=== PATIENT | male | born 1965 | race African-American/Black ===

== ENCOUNTER 2016-06-14 14:14 | Observation (INO) | payer MEDICARE, MEDICAID ==
[~2016-06-14] VITALS: Ht 190.5 cm; Wt 126.2 kg
[~2016-06-14 14:14] MED LIST: ATOR80TA76 PO; DULO30CA52 PO; ENAL5TAB PO; HYDR-4078 PO; LITH150C PO; OXYC-541 PO; SITA100T12 PO; TIZA4TAB4 PO; TRAZ-173 PO
--- OUTSIDE RECORDS SUMMARY | 2016-06-14 14:26 | XMS REPORT | Referral Summary ---
Author Author [facility] Organization [facility], Family [facility] Address Unknown Phone Unavailable Care Team Providers Care Application Architect Manager Name Role Phone Gi Alamo Primary Care Physician [phone] Encounter VC Date(s): 12/15/15 - 12/15/15 [facility], Family [address] [place] [address]- Discharge Disposition: 01-Home or Self Care Attending Physician: Alejandro Menard APRN Admitting Physician: Alejandro Menard APRN Vital Signs Most recent to 1 oldest [Reference Range]: Temperature Tympanic 36.8 degC [36.6-38.1 degC] (12/15/15 8:13 AM) Peripheral Pulse 80 bpm Rate [60-100 bpm] (12/15/15 8:13 AM) Respiratory Rate 15 br/min [14-20 br/min] (12/15/15 8:13 AM) Blood Pressure 118/80 mmHg [90-140/60-90 mmHg] (12/15/15 8:13 AM) SpO2 98 % (12/15/15 8:13 AM) Problem List No data available for this section Allergies, Adverse Reactions, Alerts Substance Reaction Severity Status metFORMIN Active Medications atorvastatin 80 mg oral tablet 80 mg 1 tabs, Oral, Daily, # 30 tabs, 0 Refill(s) Start Date: 12/15/15 Status: Ordered cephalexin 250 mg oral tablet 250 mg 1 tabs, Oral, TID, X 10 days, # 30 tabs, 0 Refill(s), Pharmacy: [id number], 1 tabs Oral TID,x10 days Start Date: 12/15/15 Stop Date: 12/25/15 Status: Ordered DULoxetine 30 mg oral delayed release capsule 30 mg 1 caps, Oral, BID, do not crush or chew, # 60 caps, 0 Refill(s) Start Date: 12/15/15 Status: Ordered enalapril 5 mg oral tablet 5 mg 1 tabs, Oral, Daily, # 30 tabs, 0 Refill(s) Start Date: 12/15/15 Status: Ordered Januvia 100 mg oral tablet 100 mg 1 tabs, Oral, Daily, # 30 tabs, 0 Refill(s) Start Date: 12/15/15 Status: Ordered lithium 150 mg oral capsule 150 mg 1 caps, Oral, Bedtime (once a day), 0 Refill(s) Start Date: 12/15/15 Status: Ordered Hersey 10 mg-325 mg oral tablet 1 tabs, Oral, TID, 0 Refill(s) Start Date: 12/15/15 Status: Ordered Percocet 5/325 oral tablet 1 tabs, Oral, q6hr, as needed for pain, 0 Refill(s) Start Date: 12/15/15 Status: Ordered tiZANidine 4 mg oral tablet 4 mg 1 tabs, Oral, q8hr, # 90 tabs, 0 Refill(s) Start Date: 12/15/15 Status: Ordered traZODone 100 mg oral tablet 100 mg 1 tabs, Oral, Bedtime (once a day), # 180 tabs, 0 Refill(s) Start Date: 12/15/15 Status: Ordered Results Chemistry Most recent to 1 oldest [Reference Range]: Sodium Lvl [135-144 137 mEq/L mEq/L] (12/15/15 9:17 AM) Potassium Lvl 4.2 mEq/L [3.5-5.2 mEq/L] (12/15/15 9:17 AM) Chloride [99-111 103 mEq/L mEq/L] (12/15/15 9:17 AM) CO2 [23-31 mEq/L] 24 mEq/L (12/15/15 9:17 AM) AGAP [3-20] 10 (12/15/15 9:17 AM) BUN [8-26 mg/dL] 7 mg/dL *LOW* (12/15/15 9:17 AM) Glucose Lvl [70-99 268 mg/dL mg/dL] *HI* (12/15/15 9:17 AM) Creatinine Lvl 0.92 mg/dL [0.72-1.25 mg/dL] (12/15/15 9:17 AM) eGFR [>60 mL/min] >60 mL/min 1 (12/15/15 9:17 AM) Calcium Lvl 9.3 mg/dL [8.9-10.5 mg/dL] (12/15/15 9:17 AM) Hgb A1c [4.1-5.6 %] 8.5 % *HI* (12/15/15 9:17 AM) eAvg Glucose 197.3 mg/dL (12/15/15 9:17 AM) 1Result Comment: Multiply eGFR results by 1.21 for race. Immunizations Vaccine Date Refusal Reason tetanus/diphth/pertuss (Tdap) adult/adol 10/31/15 influenza virus vaccine, inactivated 10/31/15 Procedures Procedure Date Related Diagnosis Body Site Stroke Social History Social History Type Response Smoking Status Current some day smoker; Type: Cigarettes; Tobacco use per day: 1 Pack Assessment and Plan No data available for this section
--- OUTSIDE RECORDS SUMMARY | 2016-06-14 14:26 | XMS REPORT | Referral Summary ---
Author Author [facility], Family [facility] Organization [facility], [facility] Address Unknown Phone Unavailable Care Team Providers Care Engraver Rubber Name Role Phone Gi Alamo Primary Care Physician [phone] Encounter Date(s): 01/13/16 - 01/13/16 [facility], [address] [place] [address]- [place] Discharge Diagnosis: Erectile dysfunction associated with type 2 diabetes mellitus Discharge Diagnosis: Benign essential hypertension Discharge Diagnosis: Chronic pain syndrome Discharge Diagnosis: Hyperlipidemia associated with type 2 diabetes mellitus Discharge Diagnosis: Diabetes mellitus type 2, uncontrolled, without complications Discharge Diagnosis: Bipolar depression Discharge Diagnosis: Hyperlipidemia Discharge Disposition: 01-Home or Self Care Attending Physician: Chelsey Alamo DO Admitting Physician: Chelsey Alamo DO Vital Signs Most recent to 1 oldest [Reference Range]: Temperature Tympanic 36.1 degC [36.6-38.1 degC] *LOW* (01/13/16 8:20 AM) Peripheral Pulse 88 bpm Rate [60-100 bpm] (01/13/16 8:20 AM) Respiratory Rate 16 br/min [14-20 br/min] (01/13/16 8:20 AM) Blood Pressure 136/88 mmHg [90-140/60-90 mmHg] (01/13/16 8:20 AM) SpO2 98 % (01/13/16 8:20 AM) Problem List Condition Effective Dates Status Health Status Informant Benign essential Active hypertension(Confirm ed) Closed TBI Active (traumatic brain injury)(Confirmed) Chronic pain Active syndrome(Confirmed) Bipolar Active depression(Confirmed ) Erectile dysfunction Active associated with type 2 diabetes mellitus(Confirmed) History of Active stroke(Confirmed) History of CVA with Active residual deficit(Confirmed) Hyperlipidemia(Confi Active rmed) Obesity(Confirmed) Active patient Diabetes mellitus Active type 2, uncontrolled, without complications(Confir med) Allergies, Adverse Reactions, Alerts Substance Reaction Severity Status metFORMIN Active Medications atorvastatin 80 mg oral tablet 80 mg 1 tabs, Oral, Daily, # 30 tabs, 0 Refill(s) Start Date: 12/15/15 Status: Ordered Cialis 2.5 mg oral tablet 2.5 mg 1 tabs, Oral, Daily, at the same time every day, # 90 tabs, 0 Refill(s), Pharmacy: [facility], 1 tabs Oral Daily,Instr:at the same time every day Start Date: 01/13/16 Status: Ordered DULoxetine 30 mg oral delayed release capsule 30 mg 1 caps, Oral, BID, do not crush or chew, # 60 caps, 0 Refill(s) Start Date: 12/15/15 Status: Ordered enalapril 5 mg oral tablet 5 mg 1 tabs, Oral, Daily, # 30 tabs, 0 Refill(s) Start Date: 12/15/15 Status: Ordered glipiZIDE 10 mg oral tablet 10 mg 1 tabs, Oral, Daily, # 90 tabs, 0 Refill(s), Pharmacy: [facility], 1 tabs Oral Daily Start Date: 01/13/16 Status: Ordered lithium 150 mg oral capsule 150 mg 1 caps, Oral, Bedtime (once a day), 0 Refill(s) Start Date: 12/15/15 Status: Ordered Savage 10 mg-325 mg oral tablet 1 tabs, [...] Refill(s) Start Date: 12/15/15 Status: Ordered Results No data available for this section Immunizations Vaccine Date Refusal Reason tetanus/diphth/pertuss (Tdap) adult/adol 10/31/15 influenza virus vaccine, inactivated 10/31/15 Procedures Procedure Date Related Diagnosis Body Site Stroke Social History Social History Type Response Smoking Status Current some day smoker; Type: Cigarettes; Tobacco use per day: 1 Pack Assessment and Plan Extracted from: Title: Office Visit Note Author: Chelsey Alamo DO Date: 01/13/16 Assessment/Plan Benign essential hypertension Continue current regimen, labs are up-to-date , return to clinic in 3 months. Ordered: Office Visit Level 4 Est 72229 Bipolar depression Continue as per her Christine. Ordered: Office Visit Level 4 Est 94519 Chronic pain syndrome He has been referred to [facility], we are currently waiting hisprevious pain management physiciansrecords be transferred there for they will accept him. Diabetes mellitus type 2, uncontrolled, without complications We will discontinue the Januvia due to side effects and start the patient on glipizide due to cost. We will start him on 10 mg of glipizide and he will call with fasting blood sugars in about 3 weeks. We will adjustregimen from there based on sugars. He'll return to clinic in 3 months. Ordered: Office Visit Level 4 Est 78337 Erectile dysfunction associated with type 2 diabetes mellitus, Hyperlipidemia associated with type 2 diabetes mellitus We will start Cialis for daily use. Ordered: Office Visit Level 4 Est 44643 Hyperlipidemia Continue statin at this time, return to clinic in 3 months. Ordered: Office Visit Level 4 Est 35628
--- OUTSIDE RECORDS SUMMARY | 2016-06-14 14:26 | XMS REPORT | Referral Summary ---
Author Author [facility] Organization [facility] Address Unknown Phone Unavailable Care Team Providers Care Senior Estimator Name Role Phone Gi Alamo Primary Care Physician [phone] Encounter VC Date(s): 01/19/16 - 01/19/16 [facility] [address] [facility] [place] [address] Discharge Diagnosis: Pain of right great toe Discharge Diagnosis: Pain due to onychomycosis of toenail Discharge Diagnosis: Diabetes mellitus type 2, uncontrolled, without complications Discharge Disposition: 01-Home or Self Care Attending Physician: Niall Bradley DPM Admitting Physician: Niall Bradley DPM Vital Signs No data available for this section Problem List Condition Effective Dates Status Health Status Informant Benign essential Active hypertension(Confirm ed) Closed TBI Active (traumatic brain injury)(Confirmed) Chronic pain Active syndrome(Confirmed) Bipolar Active depression(Confirmed ) Erectile dysfunction Active associated with type 2 diabetes mellitus(Confirmed) History of Active stroke(Confirmed) History of CVA with Active residual deficit(Confirmed) Hyperlipidemia(Confi Active rmed) Obesity(Confirmed) Active patient Pain due to Active onychomycosis of toenail(Confirmed) Diabetes mellitus Active type 2, uncontrolled, without [...] day, # 90 tabs, 0 Refill(s), Pharmacy: [facility], 1 tabs Oral Daily,Instr:at [...] Daily, # 90 tabs, 0 Refill(s), Pharmacy: [facility], 1 tabs Oral Daily Start Date: 01/13/16 Status: Ordered lithium 150 mg oral capsule 150 mg 1 caps, Oral, Bedtime (once a day), 0 Refill(s) Start Date: 12/15/15 Status: Ordered Hagerman 10 mg-325 mg oral tablet 1 tabs, [...] Procedures Procedure Date Related Diagnosis Body Site Debridement of nail(s) by any method(s); or 01/19/16 more Stroke Social History Social History Type Response Smoking Status Current some day smoker; Type: Cigarettes; Tobacco use per day: 1 Pack Assessment and Plan Extracted from: Title: Ambulatory Patient Education Author: Niall Bradley DPM Date: Preventive Medicine Diabetes and Foot Care Diabetes may cause you to have problems because of poor blood supply ( circulation) to your feet and legs. This may cause the skin on your feet to become thinner, break easier, and heal more slowly. Your skin may become dry, and the skin may peel and crack. You may also have nerve damage in your legs and feet causing decreased feeling in them. You may not notice minor injuries to your feet that could lead to infections or more serious problems. Taking care of your feet is one of the most important things you can do for yourself. HOME CARE INSTRUCTIONS Wear shoes at all times, even in the house. Do not go barefoot. Bare feet are easily injured. Check your feet daily for blisters, cuts, and redness. If you cannot see the bottom of your feet, use a mirror or ask someone for help. Wash your feet with warm water (do not use hot water) and mild soap. Then pat your feet and the areas between your toes until they are completely dry. Do not soak your feet as this can dry your skin. Apply a moisturizing lotion or petroleum jelly (that does not contain alcohol and is unscented) to the skin on your feet and to dry, brittle toenails. Do not apply lotion between your toes. Trim your toenails straight across. Do not dig under them or around the cuticle. File the edges of your nails with an emery board or nail file. Do not cut corns or calluses or try to remove them with medicine. Wear clean socks or stockings every day. Make sure they are not too tight. Do not wear knee-high stockings since they may decrease blood flow to your legs. Wear shoes that fit properly and have enough cushioning. To break in new shoes, wear them for just a few hours a day. This prevents you from injuring your feet. Always look in your shoes before you put them on to be sure there are no objects inside. Do not cross your legs. This may decrease the blood flow to your feet. If you find a minor scrape, cut, or break in the skin on your feet, keep it and the skin around it clean and dry. These areas may be cleansed with mild soap and water. Do not cleanse the area with peroxide, alcohol, or iodine. When you remove an adhesive bandage, be sure not to damage the skin around it. If you have a wound, look at it several times a day to make sure it is healing. Do not use heating pads or hot water bottles. They may burn your skin. If you have lost feeling in your feet or legs, you may not know it is happening until it is too late. Make sure your health care provider performs a complete foot exam at least annually or more often if you have foot problems. Report any cuts, sores, or bruises to your health care provider immediately. SEEK MEDICAL CARE IF: You have an injury that is not healing. You have cuts or breaks in the skin. You have an ingrown nail. You notice redness on your legs or feet. You feel burning or tingling in your legs or feet. You have pain or cramps in your legs and feet. Your legs or feet are numb. Your feet always feel cold. SEEK IMMEDIATE MEDICAL CARE IF: There is increasing redness, swelling, or pain in or around a wound. There is a red line that goes up your leg. Pus is coming from a wound. You develop a fever or as directed by your health care provider. You notice a bad smell coming from an ulcer or wound. This information is not intended to replace advice given to you by your health care provider. Make sure you discuss any questions you have with your health care provider. Document Released: 01/28/2001 Document Revised: 10/03/2013 Document Reviewed: [employer] Interactive Patient Education 2016 [employer] No follow up information was provided. Extracted from: Title: Office Visit Note Author: Niall Bradley M Date: 01/19/16 Assessment/Plan 1.Pain due to onychomycosis of toenail 2.Pain of right great toe ABN and consent forms were signed by the patient. Debridement of toenails,total of 10 was performed viamanual and mechanical means without any incidence. Patient will be referred to Dr. Timfor routine toenail care. Follow up if condition worsens. 3.Diabetes mellitus type 2, uncontrolled, without complications Most recent A1c was 8.5.
--- OUTSIDE RECORDS SUMMARY | 2016-06-14 14:26 | XMS REPORT | Continuity of Care Document ---
Author Author [facility] Organization [facility] Address Unknown Phone Unavailable Care Team Providers Care Rn Security Name Role Phone OTHER Primary Care Physician [phone] Insurance Providers Guarantor Modesto Benavides Sr Address [address] [place] [address] Email DENIED/NO PORTAL Payer Medicaid Out Of State Policy Number [id number] Subscriber's Name Modesto Benavides Sr Relationship 18 Self Payer [employer] Policy Number [id number] Subscriber's Name Modesto Benavides Sr Relationship 18 Self Chief Complaint and Reason for Visit Chief Complaint Nausea,Vomiting,Diarrhea Reason for Visit [id number] Problems Past Problems Medical Problem Onset Date Abdominal pain, chronic, left lower quadrant Unknown Abdominal pain, chronic, left upper quadrant Unknown Medications Current Home Medications Medication Dose Units Route Directions Days Qty Instructions Start Date Atorvastatin Calcium 80 Mg Tablet 80 Mg Oral Bedtime 12/03/15 Duloxetine Hcl 30 Mg Capsule.dr 30 Mg Oral Twice A Day 12/03/15 Enalapril Maleate 5 Mg Tablet 5 Mg Oral Daily 12/03/15 Hydrocodone/Acetaminophen (Marian[place] 10-325 Tablet) 10-325 Tablet 1 Tab Oral Three Times A Day 12/03/15 Pinole Carbonate 150 Mg Capsule 150 Mg Oral Daily 12/03/15 Oxycodone Hcl/Acetaminophen (Oxycodone-Acetaminophen 5-325) 5-325 Tablet 1-2 Tab Oral Every 6 Hours as needed for Pain 15 Tablet 12/03/15 Sitagliptin Phosphate (Januvia) 100 Mg Tablet 100 Mg Oral Daily 12/03/15 Tizanidine Hcl 4 Mg Tablet 4 Mg Oral Q8h @ 0100/0900/1700 as needed for Prn Orders 12/03/15 Trazodone Hcl 100 Mg Tablet 100 Mg Oral Bedtime 12/03/15 Social History Social History Problem Response Recorded Date/Time Onset Date Status Chewing Tobacco Status No 12/03/2015 1:19pm Not Applicable Not Applicable Hx Substance Use No 12/03/2015 1:19pm Not Applicable Not Applicable Hx Alcohol Use No 12/03/2015 1:19pm Not Applicable Not Applicable Query Response Start Date Stop Date Smoking Status Current every day smoker Hospital Discharge Instructions No hospital discharge instructions. Plan of Care Discharge Date 12/03/15 5:06pm Disposition 01 DISCHARGED HOME, SELF-CARE Condition at Discharge Improved Instructions/Education Provided ED Abdominal Pain Prescriptions See Medication Section Referrals OTHER Additional Instructions/Education Establish yourself with a primary medical physician for further follow-up Recommend Imodium for diarrhea Care Plan and Goals Physician Care Plan Problem: Chronic abdominal pain, diarrhea Goal: Follow up with primary care provider Instructions: Take medications and follow care plan as discussed/written Functional Status No functional status results. Allergies, Adverse Reactions, Alerts Allergen Type Severity Reaction Status Last Updated Metformin Allergy Unknown LOOSE STOOLS Active 12/03/15 Immunizations Query Response on File Recorded Date/Time DTaP Vaccine History 201312/03/15 1:19pm Influenza Vaccine Hx 201412/03/15 1:19pm Vital Signs Acute Vital Signs Vital Response Date/Time Temperature (Fahrenheit) 98.5 deg F (96.8 - 99.1) 12/03/2015 5:06pm Temperature (Calculated Celsius) 36.51739 degrees C (36.0 - 37.3) 12/03/2015 5:06pm Pulse Rate (adult) 93 bpm (60 - 100) 12/03/2015 5:06pm Respiratory Rate 16 breaths/min (10 - 20) 12/03/2015 5:06pm O2 Sat by Pulse Oximetry 95 % (90 - 100) 12/03/2015 5:06pm Blood Pressure 130/82 mm Hg 12/03/2015 5:06pm Height (Feet) 6 feet 12/03/2015 12:58pm Height (Inches) 3.00 inches 12/03/2015 12:58pm Weight (Kilograms) 124.400 kg 12/03/2015 12:58pm Body Mass Index (BMI) 34.0 12/03/2015 12:58pm Results Laboratory Results Test Name Result Units Flags Reference Collection Date/Time Result Date/ Time Comments White Blood Count 7.9 T/MM3 4.5-11.0 12/03/2015 2:07pm 12/03/2015 2: 14pm Red Blood Count 5.32 M/MM3 4.50-5.90 12/03/2015 2:07pm 12/03/2015 2: 14pm Hemoglobin 16.9 GM/DL 13.5-17.5 12/03/2015 2:07pm 12/03/2015 2:14pm Hematocrit 51.3 % 41-53 12/03/2015 2:07pm 12/03/2015 2:14pm Mean Corpuscular Volume 96.4 UM3 80-100 12/03/2015 2:07pm 12/03/2015 2: 14pm Mean Corpuscular Hemoglobin 31.8 UUG 26-34 12/03/2015 2:07pm 2015 2:14pm Mean Corpuscular Hemoglobin Concent 32.9 GM/DL 31-37 12/03/2015 2:07pm 12/03/2015 2:14pm RDW Standard Deviation 41.7 FL 36.9-50.2 12/03/2015 2:07pm 12/03/2015 2 :14pm Platelet Count 172 T/MM3 130-400 12/03/2015 2:07pm 12/03/2015 2:14pm Mean Platelet Volume 11.4 UM3 9.4-12.4 12/03/2015 2:07pm 12/03/2015 2: 14pm Neutrophils (%) (Auto) 60.8 % 33-66 12/03/2015 2:07pm 12/03/2015 2: 14pm Lymphocytes (%) (Auto) 32.4 % 23-45 12/03/2015 2:07pm 12/03/2015 2: 14pm Monocytes (%) (Auto) 4.7 % 0-9.0 12/03/2015 2:07pm 12/03/2015 2:14pm Eosinophils (%) (Auto) 1.9 % 0-4 12/03/2015 2:07pm 12/03/2015 2:14pm Basophils (%) (Auto) 0.1 % 0-2 12/03/2015 2:07pm 12/03/2015 2:14pm Immature Granulocyte % (Auto) 0.1 % 0.0-0.5 12/03/2015 2:07pm 2015 2:14pm Absolute Neutrophils (auto) 4.8 T/MM3 1.8-7.7 12/03/2015 2:07pm 2015 2:14pm Absolute Lymphocytes (auto) 2.6 T/MM3 1-4.8 12/03/2015 2:07pm 2015 2:14pm Absolute Monocytes (auto) 0.4 T/MM3 0-0.8 12/03/2015 2:07pm 12/03/2015 2:14pm Absolute Eosinophils (auto) 0.2 T/MM3 0-0.5 12/03/2015 2:07pm 2015 2:14pm Absolute Basophils (auto) 0.0 T/MM3 0-0.2 12/03/2015 2:07pm 12/03/2015 2:14pm Absolute Immature Granulocyte (auto 0.01 T/MM3 0.00-0.03 12/03/2015 2: 07pm 12/03/2015 2:14pm Icterus Index < 2 0-7 12/03/2015 2:07pm 12/03/2015 2:25pm Chemistry Specimen Hemolysis < 15 0-25 12/03/2015 2:07pm 12/03/2015 2 :25pm 0-25: Specimen Exhibited No Hemolysis. Turbidity < 20 0-20 12/03/2015 2:07pm 12/03/2015 2:25pm Sodium Level 143 MEQ/L 134-144 12/03/2015 2:07pm 12/03/2015 2:25pm Potassium Level 4.2 MEQ/L 3.6-5 12/03/2015 2:07pm 12/03/2015 2:25pm Chloride Level 102 MEQ/L 98-107 12/03/2015 2:07pm 12/03/2015 2:25pm Carbon Dioxide Level 30 MEQ/L 22-30 12/03/2015 2:07pm 12/03/2015 2: 25pm Anion Gap 11 MEQ/L 5-15 12/03/2015 2:07pm 12/03/2015 2:25pm Blood Urea Nitrogen 12.0 MG/DL 9-12/03/2015 2:07pm 12/03/2015 2: 25pm Creatinine 0.9 MG/DL 0.8-1.5 12/03/2015 2:07pm 12/03/2015 2:25pm BUN/Creatinine Ratio 13 RATIO 6-26 12/03/2015 2:07pm 12/03/2015 2:25pm Glomerular Filtration Rate Calc 90 12/03/2015 2:07pm 12/03/2015 2: 25pm Glucose Level 213 MG/DL H 75-110 12/03/2015 2:07pm 12/03/2015 2:25pm Calculated Osmolality 281 MOSM/KG H 261-280 12/03/2015 2:07pm 2015 2:25pm Calcium Level 9.9 MG/DL 8.4-10.2 12/03/2015 2:07pm 12/03/2015 2:25pm Total Bilirubin 0.80 MG/DL 0.20-1.30 12/03/2015 2:07pm 12/03/2015 2: 25pm Alkaline Phosphatase 141 U/L H 38-126 12/03/2015 2:07pm 12/03/2015 2: 25pm Total Protein 7.9 G/DL 6.3-8.2 12/03/2015 2:07pm 12/03/2015 2:25pm Albumin 4.5 G/DL 3.5-5.0 12/03/2015 2:07pm 12/03/2015 2:25pm Globulin 3.4 G/DL 2.4-3.6 12/03/2015 2:07pm 12/03/2015 2:25pm Albumin/Globulin Ratio 1.3 RATIO 1.1-2.2 12/03/2015 2:07pm 12/03/2015 2 :25pm Aspartate Amino Transf (AST/SGOT) 34 U/L 17-59 12/03/2015 2:07pm 2015 2:25pm Alanine Aminotransferase (ALT/SGPT) 44 U/L 21-72 12/03/2015 2:07pm 2:25pm Lipase 193 U/L 23-300 12/03/2015 2:07pm 12/03/2015 2:25pm Pinole Level < 0.2 MMOL/L L 0.6-1.2 12/03/2015 2:07pm 12/03/2015 2: 36pm Urine Collection Type VOIDED-NOT CC-MIDSTR 12/03/2015 3:16pm 2015 3:20pm Urine Color YELLOW YELLOW 12/03/2015 3:16pm 12/03/2015 3:20pm Urine Turbidity CLEAR CLEAR 12/03/2015 3:16pm 12/03/2015 3:20pm Urine Specific [place] 1.025 1.015-1.025 12/03/2015 3:16pm 2015 3:20pm Urine pH 5.5 5.0-8.0 12/03/2015 3:16pm 12/03/2015 3:20pm Urine Leukocyte Esterase NEGATIVE NEGATIVE 12/03/2015 3:16pm 2015 3:20pm Urine Nitrite NEGATIVE NEGATIVE 12/03/2015 3:16pm 12/03/2015 3:20pm Urine Protein NEGATIVE NEGATIVE 12/03/2015 3:16pm 12/03/2015 3:20pm Urine Glucose (UA) 3+ A NEGATIVE 12/03/2015 3:16pm 12/03/2015 3:20pm Urine Ketones NEGATIVE NEGATIVE 12/03/2015 3:16pm 12/03/2015 3:20pm Urine Urobilinogen 1.0 EU/DL NORMAL 12/03/2015 3:16pm 12/03/2015 3: 20pm Urine Bilirubin NEGATIVE NEGATIVE 12/03/2015 3:16pm 12/03/2015 3: 20pm Urine Blood NEGATIVE NEGATIVE 12/03/2015 3:16pm 12/03/2015 3:20pm Urinalysis Comment MICROSCOPIC NOT IND. 12/03/2015 3:16pm 2015 3:20pm Name: MODESTO BENAVIDES SR Unit #: [id number] : 1965 Sex: M Admit Date: Loc / Svc: ED Discharge Date: DIAGNOSTIC IMAGING REPORT Report #: [id number] [facility] IVAN Enriquez Indication: ITS.REASON: severe left-sided abdominal pain PROCEDURE: KUB W/UPRIGHT: Encounter: Initial Comparison: None Findings: The visualized lung bases are clear. There is no free air on the upright view. The bowel gas pattern is nonobstructive and nonspecific. Gas is seen in nondilated small and large bowel to the level of the rectum. Moderate stool is seen throughout the colon. The bony structures are grossly unremarkable. Impression: Nonobstructive nonspecific bowel gas pattern. . Procedures No known history of procedures. Encounters Encounter Location Arrival/Admit Date Discharge/Depart Date Attending Provider Departed Emergency Room [facility] 12/03/15 12:53pm 12/03/15 5: 06pm JORGE PICKARD MD Recent Diagnosis
--- OUTSIDE RECORDS SUMMARY | 2016-06-14 14:26 | XMS REPORT | Continuity of Care Document ---
Author Author [facility] Organization [facility] Address Unknown Phone Unavailable Care Team Providers Care Dental Ceramist Name Role Phone Tamie Aguillon Primary Care Physician [phone] Source Comments Some departments are not documenting in the electronic medical record. If you do not see the information that you expected, contact Release of Information in the Health Information Management department at [phone] for further assistance in locating additional records.[facility] Active Allergies and Adverse Reactions No Known Allergies Current Medications Prescription Sig. Disp. Refills Start End Date Status Date blood sugar diagnostic 1 Each by Test route 3 box 3 06/14/19 Active (CONTOUR NEXT STRIPS) twice daily before meals. 13 test strip Needs contour strips. Tests blood sugars BID. zonisamide (ZONEGRAN) 100 Take 100 mg by mouth Active mg capsule daily. At HS, Per neurologist other medication Pt needs home BP cuff to 1 Each 0 02/21/19 Active monitor pressures. Dx : 14 HTN and CVA 401.9 and 434.91 atorvastatin (LIPITOR) 10 Take 1 Tab by mouth 90 Tab 3 03/19/19 Active mg tablet daily. 14 lisinopril-hydrochlorothi Take 1 Tab by mouth 90 Tab 3 04/11/19 Active azide (PRINZIDE, daily. 14 ZESTORETIC) 10-12.5 mg tablet glimepiride (AMARYL) 4 mg Take 1 Tab by mouth daily 90 Tab 3 05/17/19 Active tablet with breakfast. For 14 diabetes other medication NATALY Jasso, one pair 1 Dose 0 11/08/19 Active 14 pregabalin (LYRICA) 75 mg Take 1 Cap by mouth twice 180 Cap 3 Active capsule daily. 14 baclofen (LIORESAL) 20 mg Take 1 Tab by mouth three 270 Tab 3 Active tablet times daily. 14 HYDROcodone-acetaminophen Take 1 Tab by mouth every 60 Tab 0 11/16/19 Active (+) (NORCO) 7.5-325 mg 8 hours as needed for 14 tablet Pain. phenytoin SR (DILANTIN) Take 1 Cap by mouth three 270 Cap 3 11/16/19 Active 100 mg capsule times daily. 14 sertraline (ZOLOFT) 100 Take 1 Tab by mouth 135 Tab 3 11/16/19 Active mg tablet daily. Take 1 and 1/2 14 pills daily. Active Problems Problem Noted Date Diabetic peripheral neuropathy ([facility]) 07/11/2013 Glaucoma suspect of both eyes 04/23/2013 Overview: D/t large C/Ds OU and C/D asymmetry (OS>OD) Patient states he's been followed for glaucoma before, but never started on eye drops L ast Assessment & Plan: Educated patient on condition. RTC 1 month for glaucoma testing at [place] location (VF 24-2 LUANNE FAST, RNFL OCT, gonio, pachymetry, IOP) Astigmatism with presbyopia 04/23/2013 Last Assessment & Plan: Prescription for glasses provided to patient. Monitor yearly. Hyperlipidemia 03/19/2013 Depression 08/04/2012 Hypertension 07/06/2012 Last Assessment & Plan: Without retinopathy OU. Reviewed with patient need for good blood pressure control to maintain ocular health. Monitor yearly. CVA (cerebral infarction) 04/25/2012 Overview: Hemorrhagic in '09 or'10 ([place]). Deficits include R arm paralysis, L leg weakness, spasticity, gait abnormality. Will refer to PT/OT for evaluation and to see what items might be needed for home safety. Also he needs a gait evaluation for possible walker or scooter. I have requested old records. Any Neuro input would be appreciated. Diabetes mellitus ([facility]) 04/25/2012 Overview: Last A1c normal. A1c pending. Will follow and restart Metformin if needed. L ast Assessment & Plan: Without retinopathy OU. Reviewed with patient need for tight control of diabetes to help maintain ocular health. Monitor yearly. History of hypertension 04/25/2012 Overview: Continue to follow. Seizure disorder ([facility]) 04/25/2012 Overview: Refer to Neurology for management. Abnormality of gait following cerebrovascular accident 04/25/2012 Overview: Gait eval. Social History Tobacco Use Types Packs/Day Years Used Date Current Every Day Smoker Cigarettes 0.25 30 Smokeless Tobacco: Never Used Tobacco Cessation: Ready to Quit: Yes; Counseling Given: Yes Comments: Alcohol Use Drinks/Week oz/Week Comments No Last Filed Vital Signs Vital Sign Reading Time Taken Blood Pressure 146/80 11/07/2013 11:01 AM CDT Pulse 74 11/07/2013 11:01 AM CDT Temperature 37.1 C (98.8 F) 11/07/2013 11:01 AM CDT Respiratory Rate 16 11/07/2013 11:01 AM CDT Height 1.88 m (6' 2") 09/26/2013 8:09 AM CDT Weight 136.079 kg (300 lb) 09/26/2013 8:09 AM CDT Body Mass Index 38.5 09/26/2013 8:09 AM CDT Oxygen Saturation 96% 05/01/2013 7:00 PM CDT Plan of Care Health Maintenance Due Date Last Done Comments Physical (Comprehensive) 1973 Exam Pertussis Vaccine 1977 Hba1c 01/10/2014 07/10/2013, 03/09/2013, 04/24/2012 Microalbumin 03/09/2014 03/09/2013, 04/24/2012 Foot Exam 04/02/2014 04/02/2013 Dilated Eye Exam 04/23/2014 04/23/2013, 04/23/2013 (Previously completed), 10/23/2012 (Previously completed) Influenza Vaccine 10/15/2016 10/31/2012 (Previously completed), 09/17/2012 Tetanus Vaccine 03/01/2017 03/01/2007 (Previously completed) Pneumonia Vaccine (Dm) Addressed 11/22/2011 (Previously completed) Overridden with the intention of not completing the topic Results from Last 3 Months Not on file
--- NOTE | 2016-06-14 14:30 | NUR ---
PROVIDER DR. RUBIO AT BEDSIDE FOR EXAM.
[2016-06-14] MEDS ORDERED: NORMAL SALINE 1,000 ML IV ONE (14:31)
--- NOTE | 2016-06-14 14:32 | NUR ---
CT PT TO CT BY CART AT THIS TIME.
--- NOTE | 2016-06-14 14:34 | ERPDOC ---
Departure Disposition Decision Date: June 14, 2016 Disposition Decision Time: 16:02 Disposition: 02 TO OBS [facility] – [place] Impression Impression Impression: Primary Impression: CVA (cerebral vascular accident) CVA mechanism: unspecified Qualified Codes: I63.9 - Cerebral infarction, unspecified Additional Impressions: Diabetes Diabetes mellitus type: type 2 Diabetes mellitus complication status: with neurologic complications Diabetes mellitus complication detail: with other neurological complication Diabetes mellitus exterminator insulin use: without snf use Qualified Codes: E11.49 - Type 2 diabetes mellitus with other diabetic neurological complication Hypertension Hypertension type: essential hypertension Qualified Codes: I10 - Essential ( primary) hypertension Severity: Mild Condition: Stable Seen By: Physician only Referrals: OTHER (PCP) Problems/Meds/Labs Reviewed?: Yes Medications reviewed and manag: Yes Follow up care ordered?: Yes Mental Status: Alert, Oriented Scripts Aspirin (Aspir 81) 81 Mg Tablet.dr 1 TAB PO DAILY, #30 TAB 5 Refills Prov: YENIFER ALFONSO MD 06/15/16 HPI - CVA/Neuro General Chief Complaint: Neuro Symptoms/Deficits Stated Complaint: UNBALANCE ENTIRE LEFT SIDE PAIN Time Seen by Provider: 14:18 Source: patient Exam Limitations: no limitations HPI - CVA/NEURO Initial Comments 50yo man presents to the ER for recurrent stroke symptoms. Pt has a h/o stroke, that has left him with left-sided weakness and deficits. Pt woke at 0700 this AM with new pain on his left side. Has some increased weakness in his left arm. Pt had a hemorrhagic stroke in 2008; had a craniotomy at that time to evacuate the hematoma. Occurred At: home Onset/Timing: Rapid Duration: 6-12 hrs Severity: moderate Associated Symptoms: tingling in legs/feet Hx of Similar Symptoms: Yes Affected Areas/Deficit Locatio: Left Arm, Left Leg Modifying Factors: Rest Allergies: Coded Allergies: metformin (Verified Allergy, Unknown, LOOSE STOOLS, 06/14/16) Past History Past Medical History Metabolic: diabetes, hypertension Neurological: CVA Psychological: depression Surgical History Denies Surgeries Social History Substance Use Type: does not use Alcohol Intake: none Review of Systems Neurological General: paralysis/paresis All other Systems All Other Systems: Reviewed and Negative Physical Exam General General Nourishment: well nourished, well developed, appears stated age, no acute distress, adult, obese General Body Habitus: well groomed Vitals and Pain Weight: Kilograms: Height (feet): 6 Height (inches): 3.00 Triage Pain Scale: RN VS reviewed by Provider: Yes Normal Exams: Head: Normocephalic w/o trauma Eyes: Pupils are PERRLA w/ EOMI, No scleral icterus, irritation ENMT: No facial trauma, nasal exudates, pharyngeal erythema Neck: Full range of motion, without adenopathy Lymphatic: No lymphadenopathy Musculoskeletal: No tenderness, or deformity noted Integumentary: No rashes, hives, or bruising noted Neurologic: Patient is alert, and oriented Psychiatric: Patient exhibits, appropriate attention Respiratory (brief) Respiratory: FOUND: clear all cisneros, equal bilaterally, symmetrical, NOT FOUND : rales, wheezes Cardiovascular (brief) Cardiac: FOUND: regular rate, regular rhythm, NOT FOUND: click, gallop, murmur , pedal edema, peripheral edema, rub Capillary Refill: <2 sec Pulses: all distal extremities, equal, strong Abdomen (brief) Abdominal Brief: FOUND: bowel normo active x4, soft, NOT FOUND: distended, hepatosplenomegaly, pulsatile mass, tender Musculoskeletal (brief) Comments Flexural contractures of left hand/wrist. Decreased strength on left side. Neurologic Cranial Nerves: FOUND: extraocular movements, forehead movement, NOT FOUND: facial asymmetry Differential Diagnoses Considering: Thrombotic CVA, Hemorrhagic CVA, DKA, Encephalitis, Hypo/ hypercalcemia, Hypo/hyperglycemia, Hypo/hypernatremia, Medication Effect, TIA Progress Results/Orders Orders Procedure Category Date Status Time Oxygen Administration EDM 06/14/16 Transmitted 14:31 Iv Lock (Ed Only) EDM 06/14/16 Transmitted 14:31 Bgm (Ed) EDM 06/14/16 Transmitted 14:31 Nothing By Mouth (Ed EDM 06/14/16 Transmitted Only) 14:31 Cbc W/Auto LAB 06/14/16 Complete Diff-Reflex Manual 14:31 Cmp - Comprehensive LAB 06/14/16 Complete Metabolic 14:31 Troponin I W LAB 06/14/16 Complete Hemolysis Index 14:31 INR LAB 06/14/16 Complete 14:31 PTT LAB 06/14/16 Complete 14:31 EKG EKG 06/14/16 Taken 14:31 Ct Head W/O Contrast CT 06/14/16 Resulted 14:31 Normal Saline (Normal PHA 06/14/16 Complete Saline Iv) 14:31 Elevate Hob [facility] 06/14/16 Complete 14:31 Measure Vital Signs [facility] 06/14/16 Complete 14:31 Valproic Acid/Depakote LAB 06/14/[address] In Facility: ED ADM 06/14/16 Transmitted Lab Results Laboratory Tests Test 06/14/16 14:30 06/14/16 14:51 Glucometer 235mg/dL White Blood Count 6.4T/MM3 Red Blood Count 5.09M/MM3 Hemoglobin 16.4GM/DL Hematocrit 49.2% Mean Corpuscular Volume 96.7UM3 Mean Corpuscular Hemoglobin 32.2UUG Mean Corpuscular Hemoglobin Concent 33.3GM/DL RDW Standard Deviation 40.0FL Platelet Count 136T/MM3 Mean Platelet Volume 12.3UM3 Immature Granulocyte % (Auto) 0.2% Neutrophils (%) (Auto) 51.2% Lymphocytes (%) (Auto) 40.3% Monocytes (%) (Auto) 6.1% Eosinophils (%) (Auto) 2.0% Basophils (%) (Auto) 0.2% Absolute Immature Granulocyte (auto 0.01T/MM3 Absolute Neutrophils (auto) 3.3T/MM3 Absolute Lymphocytes (auto) 2.6T/MM3 Absolute Monocytes (auto) 0.4T/MM3 Absolute Eosinophils (auto) 0.1T/MM3 Absolute Basophils (auto) 0.0T/MM3 Prothromb Time International Ratio 1.08 Activated Partial Thromboplast Time 34.2SEC Turbidity < 20 Sodium Level 145MEQ/L Potassium Level 4.5MEQ/L Chloride Level 104MEQ/L Carbon Dioxide Level 29MEQ/L Anion Gap 12MEQ/L Blood Urea Nitrogen 12.0MG/DL Creatinine 0.8MG/DL Glomerular Filtration Rate Calc 103 BUN/Creatinine Ratio 15RATIO Glucose Level 261MG/DL Calculated Osmolality 288MOSM/KG Calcium Level 10.1MG/DL Total Bilirubin 0.80MG/DL Icterus Index < 2 Aspartate Amino Transf (AST/SGOT) 30U/L Alanine Aminotransferase (ALT/SGPT) 49U/L Alkaline Phosphatase 155U/L Troponin I < 0.012ng/ml Total Protein 7.2G/DL Albumin 4.2G/DL Globulin 3.0G/DL Albumin/Globulin Ratio 1.4RATIO Chemistry Specimen Hemolysis < 15 Valproic Acid (Depakene) Level 39.3UG/ML Medications Current ED Medications Sodium Chloride (Normal Saline IV) 1,000 ml @ 0 mls/hr Q0M ONCE IV Last administered on 06/14/16t 14:54; Start 06/14/16 at 14:31; Stop 06/14/16 at 14:33; Status DC Progress Progress 50yo man with likely recurrent CVA. Discussed care with tele-neuro. No significant abn findings today. Will contact hospitalist for admission, obs, and further workup. EKG EKG : Rate: 60-100 Rhythm: sinus [place]: normal QRS: normal Intervals: normal ST/T: non-specific changes Interpreted by: signing physician Consult/PCP Consult/PCP #1: Physician Contacted: Tele-stroke Time Called: 14:34 Time of first response: 15:09 Type of discussion: Phone Consult/PCP Discussion Details Pt is well outside the window for tPA. Recommends completing w/up and admission for MRI. Consult/PCP #2: Physician Contacted: Dr. Alfonso Time Called: 15:49 Time of first response: 15:55 Type of discussion: Admit Discussion/PCP Discussion Details Will admit for obs/complete TIA/CVA work-up. CT CT : CT: Head no contrast Interpretation: Abnormal (Stable changes from previous craniotomy), Reviewed Written Report ANDREA RUBIO DO June 14, 2016 14:34 CT : CT: Head no contrast Interpretation: Abnormal (Stable changes from previous craniotomy), Reviewed Written Report ANDREA RUBIO DO June 14, 2016 14:34
--- NOTE | 2016-06-14 14:39 | NUR ---
RETURN PT RETURNED FROM CT BY CART AT THIS TIME.
--- NOTE | 2016-06-14 14:47 | DI ---
Indication: ITS.REASON: Possible CVA Procedure: CT HEAD W/O CONTRAST: Encounter: Initial Comparison: None Technique: Axial CT images through the head were performed without contrast. Iterative Reconstruction dose reducing technique was utilized. FINDINGS: Postoperative changes of right frontal craniotomy with underlying chronic right frontotemporal encephalomalacia. The normal genao-white matter differentiation is otherwise maintained. No intra-axial or extra-axial mass or hemorrhage seen. No mass effect or midline shift. Mild ex vacuo dilatation of the right lateral ventricle. The ventricles and cerebral sulci are otherwise normal in size, shape, and configuration without evidence of hydrocephalus. The basilar cisterns are patent. No extracalvarial scalp swelling. No acute calvarial fracture. The visualized paranasal sinuses and mastoid air cells are well-aerated. The visualized orbits and globes appear normal. IMPRESSION: 1. No acute intracranial process identified by CT. 2. Postoperative changes of right frontal craniotomy with underlying chronic right frontotemporal encephalomalacia and associated mild ex vacuo dilatation of the right lateral ventricle. NOTE: The ordering clinician, ANDREA RUBIO DO was informed of the findings at 06/14/2016 2:43 PM. .
[2016-06-14 14:59] LABS: BASOPHILS % (AUTO) 0.2 % (0-2); EOSINOPHILS # (AUTO) 0.1 T/MM3 (0-0.5); HCT - HEMATOCRIT 49.2 % (41-53); HGB - HEMOGLOBIN 16.4 GM/DL (13.5-17.5); IMMATURE GRANULOCYTE # (AUTO) 0.01 T/MM3 (0.00-0.03); IMMATURE GRANULOCYTE % (AUTO) 0.2 % (0.0-0.5); LYMPHOCYTES # (AUTO) 2.6 T/MM3 (1-4.8); LYMPHOCYTES % (AUTO) 40.3 % (23-45); MEAN CORPUSCULAR HGB 32.2 UUG (26-34); MEAN CORPUSCULAR HGB CONC(MCHC 33.3 GM/DL (31-37); MEAN CORPUSCULAR VOLUME 96.7 UM3 (80-100); MEAN PLATELET VOLUME 12.3 UM3 (9.4-12.4); MONOCYTES # (AUTO) 0.4 T/MM3 (0-0.8); MONOCYTES % (AUTO) 6.1 % (0-9.0); NEUTROPHILS #(AUTO)-ABSOLUTE 3.3 T/MM3 (1.8-7.7); NEUTROPHILS % (AUTO) 51.2 % (33-66); RED BLOOD COUNT 5.09 M/MM3 (4.50-5.90); WBC - WHITE BLOOD COUNT 6.4 T/MM3 (4.5-11.0)
--- OUTSIDE RECORDS SUMMARY | 2016-06-14 15:03 | XMS REPORT | Continuity of Care Document ---
Author Author [facility] Organization [facility] Address Unknown Phone Unavailable Care Team Providers Care Web Assistant Name Role Phone Tamie Aguillon Primary Care Physician [phone] Source Comments Some departments are not documenting in the electronic medical record. If you do not see the information that you expected, contact Release of Information in the Health Information Management department at [phone] for further assistance in locating additional records.[facility] Active Allergies and Adverse Reactions No [...] Problems Problem Noted Date Diabetic peripheral neuropathy ([facility]) 07/11/2013 Glaucoma suspect of both eyes 04/23/2013 Overview: D/t large C/Ds OU and C/D asymmetry (OS>OD) Patient states he's been followed for glaucoma before, but never started on eye drops L ast Assessment & Plan: Educated patient on condition. RTC 1 month for glaucoma testing at [place] location (VF 24-2 LUANNE FAST, RNFL OCT, gonio, pachymetry, IOP) Astigmatism with presbyopia 04/23/2013 Last Assessment & Plan: Prescription for glasses provided to patient. Monitor yearly. Hyperlipidemia 03/19/2013 Depression 08/04/2012 Hypertension 07/06/2012 Last Assessment & Plan: Without retinopathy OU. Reviewed with patient need for good blood pressure control to maintain ocular health. Monitor yearly. CVA (cerebral infarction) 04/25/2012 Overview: Hemorrhagic in '09 or'10 ([place]). Deficits include R arm paralysis, L leg weakness, spasticity, gait abnormality. Will refer to PT/OT for evaluation and to see what items might be needed for home safety. Also he needs a gait evaluation for possible walker or scooter. I have requested old records. Any Neuro input would be appreciated. Diabetes mellitus ([facility]) 04/25/2012 Overview: Last A1c normal. A1c pending. Will follow and restart Metformin if needed. L ast Assessment & Plan: Without retinopathy OU. Reviewed with patient need for tight control of diabetes to help maintain ocular health. Monitor yearly. History of hypertension 04/25/2012 Overview: Continue to follow. Seizure disorder ([facility]) 04/25/2012 Overview: Refer to Neurology for management. [...]
[2016-06-14 15:07] LABS: ALBUMIN 4.2 G/DL (3.5-5.0); ALBUMIN/GLOBULIN RATIO 1.4 RATIO (1.1-2.2); ALKALINE PHOSPHATASE 155 U/L (38-126); ALT (SGPT) 49 U/L (21-72); ANION GAP 12 MEQ/L (5-15); AST (SGOT) 30 U/L (17-59); BUN/CREATININE RATIO 15 RATIO (6-26); CALCIUM 10.1 MG/DL (8.4-10.2); CHLORIDE 104 MEQ/L (98-107); CO2 - CARBON DIOXIDE 29 MEQ/L (22-30); CREATININE 0.8 MG/DL (0.8-1.5); GLOMERULAR FILTRATION RATE 103; GLUCOSE 261 MG/DL (75-110); POTASSIUM 4.5 MEQ/L (3.6-5); SODIUM 145 MEQ/L (134-144); TOTAL PROTEIN 7.2 G/DL (6.3-8.2)
[2016-06-14] MEDS ORDERED: PREG100C PO (15:10)
[2016-06-14] MEDS ORDERED: DULO60CA56 PO (15:10)
[2016-06-14] MEDS ORDERED: TRAZ-173 PO (15:10)
[2016-06-14] MEDS ORDERED: MULT-175 PO (15:10)
[2016-06-14] MEDS ORDERED: DIVA500T55 PO (15:10)
[2016-06-14] MEDS ORDERED: GLIP10TA9 PO (15:11)
[2016-06-14 15:25] LABS: INR 1.08 (0.76-1.04); PROTHROMBIN TIME 11.8 SEC (9.31-12.49); PTT 34.2 SEC (24-36)
--- NOTE | 2016-06-14 16:04 | NUR ---
PROVIDER DR. RUBIO AT BEDSIDE TO SPEAK WITH PT AND SPOUSE.
[2016-06-14] MEDS ORDERED: DEXTROSE 50% SYRINGE 50ml (Eq. 1 AMP) IV PRN (16:30)
[2016-06-14] MEDS ORDERED: TIZANIDINE 4 MG TABLET PO PRN (16:30)
[2016-06-14] MEDS ORDERED: ASPIRIN *EC* 81mg TABLET PO ONE (16:30)
--- NOTE | 2016-06-14 16:31 | NUR ---
REPORT CALLED TO LUIS ENRIQUE ZAPATA ON MEDICAL UNIT, DENIES QUESTIONS.
--- OUTSIDE RECORDS SUMMARY | 2016-06-14 16:34 | XMS REPORT | Continuity of Care Document ---
Author Author [facility] Organization [facility] Address Unknown Phone Unavailable Care Team Providers Care Inside Outside Sales Representative Name Role Phone Tamie Aguillon Primary Care Physician [phone] Source Comments Some departments are not documenting in the electronic medical record. If you do not see the information that you expected, contact Release of Information in the Health Information Management department at [phone] for further assistance in locating additional records.[facility] Active Allergies and Adverse Reactions No [...] Problems Problem Noted Date Diabetic peripheral neuropathy ([facility]) 07/11/2013 Glaucoma suspect of both eyes 04/23/2013 Overview: D/t large C/Ds OU and C/D asymmetry (OS>OD) Patient states he's been followed for glaucoma before, but never started on eye drops L ast Assessment & Plan: Educated patient on condition. RTC 1 month for glaucoma testing at [place] location (VF 24-2 LUANNE FAST, RNFL OCT, [...] Neuro input would be appreciated. Diabetes mellitus ([facility]) 04/25/2012 Overview: Last A1c normal. A1c pending. Will follow and restart Metformin if needed. L ast Assessment & Plan: Without retinopathy OU. Reviewed with patient need for tight control of diabetes to help maintain ocular health. Monitor yearly. History of hypertension 04/25/2012 Overview: Continue to follow. Seizure disorder ([facility]) 04/25/2012 Overview: Refer to Neurology for management. [...]
--- NOTE | 2016-06-14 16:38 | NUR ---
ADMIT PT ADMITTED TO ROOM 137. PT ON RA. REPORTS PAIN IN LEFT SIDE. A&OX3. PRESENT.
--- NOTE | 2016-06-14 16:38 | NUR ---
ADMIT PT TAKEN TO MEDICAL UNIT, RM 137 BY CART PER THIS RN. PT TRANSFERS TO MEDICAL BED X1 ASSIST. CONTINUES TO DENY PAIN.
[2016-06-14 16:44] VITALS: Ht 190.5 cm; Wt 126.2 kg
--- NOTE | 2016-06-14 16:45 | HPPDOC ---
HPI - Adult Date DATE: 06/14/16 TIME: 16:33 General Chief Complaint: left-sided pain and weakness History of Present Illness This is a 50-year-old -[place] male presents with left-sided pain and weakness that started at 7 AM. He woke up feeling that way. There was headache on the left side. There's been some visual changes in both eyes for the past week or so. Patient is able to move the left side of his body normally but he states that it is painful, describes it as aching, and has not gone away over the past nearly 10 hours. He denies any syncope seizures visual irritation is. He denies any chest pain shortness of breath nausea vomiting or diaphoresis. For the past week he's had 2-4 episodes of loose stools a day. There's been no abdominal pain. He admits to not eating as much as he normally should. He does state he takes his medications as prescribed. There's been no dysuria or hematuria. This is different than when he had his stroke in 2008. States that for the past 3 weeks his blood sugars a bit higher than normal. States recently his glipizide was increased. Past Medical History Past Medical History Hemorrhagic CVA in 2008 Diabetes mellitus type 2 Hypertension Dyslipidemia Seizure disorder Chronic pain Surgical History Patient's Surgical History: Craniotomy Current Medications Home Meds Reported Medications Glipizide (Glipizide) 10 Mg Tablet, 2 TAB PO DAILY, TAB 06/14/16 Pregabalin (Lyrica) 100 Mg Capsule, 1 CAP PO TID, #90 CAP 2 Refills 06/14/16 Multivitamin (One Daily) 1 Each Tablet, 1 TAB PO HS 06/14/16 Divalproex Sodium (Divalproex Sodium ER) 500 Mg Tab.er.24h, 1 TAB PO HS, #60 TAB 06/14/16 Trazodone HCl (Trazodone HCl) 100 Mg Tablet, 200 MG PO HS, TAB Take 2 (100 mg) tablets, by mouth, 3 times a day. 06/14/16 Duloxetine HCl (Duloxetine HCl) 60 Mg Capsule.dr, 1 CAP PO BID, CAP 06/14/16 Enalapril Maleate (Enalapril Maleate) 5 Mg Tablet, 5 MG PO DAILY 12/03/15 Atorvastatin Calcium (Atorvastatin Calcium) 80 Mg Tablet, 80 MG PO HS 12/03/15 Tizanidine HCl (Tizanidine HCl) 4 Mg Tablet, 4 MG PO Q8HR Y for PRN ORDERS 12/03/15 Hydrocodone/Acetaminophen ([place] 10-325 Tablet) 10-325 Tablet, 1 TAB PO TID 12/03/15 Allergies: Coded Allergies: metformin (Verified Allergy, Unknown, LOOSE STOOLS, 12/03/15) Family History Family History: CVA Social History Smoking Status: Current every day smoker Does patient use chewing tobac: No # of Packs/Tins per Day: 1 Substance Use Type: does not use Alcohol Intake: none Marital Status: Sexuality: female partner Review of Systems All Other Systems All Other Systems: Reviewed (remainder of 10-point ROS Neg.) Comments As per history of present illness. All systems were reviewed and otherwise negative. Physical Exam General Vital Signs Vital Signs Date Time Temp Pulse Resp B/P Pulse Ox O2 Delivery O2 Flow Rate FiO2 06/14/16 14:22 97.5 88 14 139/91 99 Room Air Height (Feet): 6 Height (Inches): 3.00 Comments General--AAO 3; NAD HEENT--PERRLA EOMI CV--RRR Lungs--CTA B Abdomen--benign Extremities--no edema cyanosis or clubbing Neurological--cranial nerves II through XII grossly intact. Rectal--deferred Genitourinary--deferred Skin--warm dry and intact without any evidence of rashes Neurologic RN Documented GCS Eye Opening: (4)Spontaneous Verbal: (5)Oriented Motor: (6)Obeys Commands Total: Laboratory Laboratory Tests Test 06/14/16 14:30 06/14/16 14:51 Glucometer 235mg/dL White Blood Count 6.4T/MM3 Red Blood Count 5.09M/MM3 Hemoglobin 16.4GM/DL Hematocrit 49.2% Mean Corpuscular Volume 96.7UM3 Mean Corpuscular Hemoglobin 32.2UUG Mean Corpuscular Hemoglobin Concent 33.3GM/DL RDW Standard Deviation 40.0FL Platelet Count 136T/MM3 Mean Platelet Volume 12.3UM3 Immature Granulocyte % (Auto) 0.2% Neutrophils (%) (Auto) 51.2% Lymphocytes (%) (Auto) 40.3% Monocytes (%) (Auto) 6.1% Eosinophils (%) (Auto) 2.0% Basophils (%) (Auto) 0.2% Absolute Immature Granulocyte (auto 0.01T/MM3 Absolute Neutrophils (auto) 3.3T/MM3 Absolute Lymphocytes (auto) 2.6T/MM3 Absolute Monocytes (auto) 0.4T/MM3 Absolute Eosinophils (auto) 0.1T/MM3 Absolute Basophils (auto) 0.0T/MM3 Prothromb Time International Ratio 1.08 Activated Partial Thromboplast Time 34.2SEC Turbidity < 20 Sodium Level 145MEQ/L Potassium Level 4.5MEQ/L Chloride Level 104MEQ/L Carbon Dioxide Level 29MEQ/L Anion Gap 12MEQ/L Blood Urea Nitrogen 12.0MG/DL Creatinine 0.8MG/DL Glomerular Filtration Rate Calc 103 BUN/Creatinine Ratio 15RATIO Glucose Level 261MG/DL Calculated Osmolality 288MOSM/KG Calcium Level 10.1MG/DL Total Bilirubin 0.80MG/DL Icterus Index < 2 Aspartate Amino Transf (AST/SGOT) 30U/L Alanine Aminotransferase (ALT/SGPT) 49U/L Alkaline Phosphatase 155U/L Troponin I < 0.012ng/ml Total Protein 7.2G/DL Albumin 4.2G/DL Globulin 3.0G/DL Albumin/Globulin Ratio 1.4RATIO Chemistry Specimen Hemolysis < 15 Valproic Acid (Depakene) Level 39.3UG/ML Assessment & Plan Assessment #1 TIA -- we will obtain an MRI with and without contrast to evaluate for possible CVA. Patient is outside the window of the thrombolytics. We will start low-dose aspirin therapy and continue his statin therapy. #2 diarrhea -- we will start Cipro and Flagyl as the patient may have a colitis. #3 diabetes mellitus type 2 uncontrolled -- continue glipizide and place on sliding scale. #4 hypertension -- continue outpatient medications. #5 nicotine dependence -- patient was counseled on the need to quit smoking for less than 10 minutes. Will give a nicotine patch. #6 dyslipidemia -- continue his outpatient statin therapy. #7 chronic pain -- continue outpatient medications. Code Status Full Code Hospital Course Summary Disclaimer The hospital course summary below is not to be considered part of the above Progress Note. YENIFER ALFONSO MD June 14, 2016 16:37
[2016-06-14 16:56] VITALS: BP 126/81; PULSE 79; RESP 18; TEMP 97.9; O2SAT 97
[2016-06-14] MEDS: INSULIN REGULAR 100 UNIT/ML SQ PRN ×2 (17:52→21:53)
--- NOTE | 2016-06-14 18:34 | NUR ---
STATUS PT IS A&OX3. UP TO THE BATHROOM WITH 1 ASSIST AND CANE. PT SITTING UP TO THE SIDE OF THE BED READY FOR SUPPER. NOTABLE WEAKNESS ON THE LEFT SIDE, WORSE IN THE LEFT UPPER EXTREMITY. PT LIFTS LEFT ARM USING HIS RIGHT HAND. CALLS FOR NEEDS.
[2016-06-14 20:00] VITALS: BP 126/81; PULSE 79; RESP 18; TEMP 97.9; O2SAT 97
[2016-06-14] MEDS ORDERED: GADOBUTROL 10mMol/10ml INJECTION IV ONE (20:25)
[2016-06-14] MEDS ORDERED: SALINE FLUSH 10ml SYRINGE ONE (20:25)
[2016-06-14 21:24] VITALS: BP 135/86; PULSE 82; RESP 16; TEMP 96.4; O2SAT 98
[2016-06-14] MEDS: PREGABALIN 100 MG CAPSULE PO SCH (21:53)
[2016-06-14] MEDS: DULOXETINE 60 MG CAPSULE PO SCH (21:53)
[2016-06-14] MEDS: CIPROFLOXACIN 500 MG TABLET PO SCH (21:54)
[2016-06-14] MEDS: METRONIDAZOLE 500 MG TABLET PO SCH (21:54)
[2016-06-14] MEDS ORDERED: ATORVASTATIN 40 MG TABLET PO SCH (22:00)
[2016-06-14] MEDS ORDERED: TRAZODONE 100 MG TABLET PO SCH (22:00)
[2016-06-14] MEDS ORDERED: MULTIVITAMIN PLAIN TABLET PO SCH (22:00)
[2016-06-14] MEDS ORDERED: DIVALPROEX ER 500 MG TABLET PO SCH (22:00)
[2016-06-14 23:37] VITALS: BP 132/80; PULSE 85; RESP 20; TEMP 98.1; O2SAT 95
--- NOTE | 2016-06-15 00:24 | NUR ---
Chart Check 24 hour chart check completed
[2016-06-15 03:18] VITALS: BP 125/75; PULSE 94; RESP 18; TEMP 98; O2SAT 93
--- NOTE | 2016-06-15 05:54 | NUR ---
SHIFT SUMMARY PT HAS SLEPT SOUNDLY THROUGHOUT THE NIGHT. ALERT AND ORIENTED X 3. PT GIVEN SCHEDULED NORCO FOR PAIN. DENIES N/V/SOA. 1999 ADA DIET. UP WITH SBA AND CANE TO BATHROOM. HOB 30 DEGREES. IVL IN RIGHT AC, FLUSHES WELL. VSS, ON RA. PT STATES THAT HIS WEAKNESS NEVER WORSENED ON THE LEFT SIDE, ONLY HAD INCREASED PAIN. BUT PTS STATES THAT PT TOLD HER AT HOME THAT HIS LEFT SIDE FELT WEAKER--CONFLICTING STATEMENTS. AT BEDSIDE. CCU RN PERFORMING NIH STROKE SCALE Q4H. BED LOCKED AND LOW, BED ALARM ON. CALL LIGHT WITHIN REACH. WILL CONTINUE TO MONITOR.
[2016-06-15] MEDS: INSULIN REGULAR 100 UNIT/ML SQ PRN (06:14)
[2016-06-15 08:00] VITALS: BP 142/83; PULSE 88; RESP 18; TEMP 98; O2SAT 95
[2016-06-15] MEDS ORDERED: GlipiZIDE 5 MG TABLET PO SCH (08:00)
[2016-06-15 08:36] VITALS: PULSE 94; RESP 18
[2016-06-15] MEDS ORDERED: NICOTINE 14 MG PATCH TD SCH (09:00)
[2016-06-15] MEDS ORDERED: ENALAPRIL 5 MG TABLET PO SCH (09:00)
[2016-06-15] MEDS ORDERED: NICOTINE PATCH REMOVAL TD SCH (09:00)
--- NOTE | 2016-06-15 09:13 | DI ---
Indication: ITS.REASON: TIA PROCEDURE: MRI BRAIN W/WO CONTRAST: Encounter: Initial Comparisons: Head CT dated June 14, 2016 Technique: Multiplanar, multisequence, MR imaging of the head with and without contrast was acquired. Contrast: 10 mL of Gadavist FINDINGS: Large area of encephalomalacia in the right frontal and parietal lobes with postoperative changes. Moderate generalized atrophy. The ventricles are stable. The brain stem, cerebellum, and cerebral hemispheres otherwise have a normal morphologic appearance as well as MR signal intensity on all pulse sequences. Following intravenous administration of contrast, no areas of abnormal enhancement are evident. There are no areas of restricted diffusion to suggest an acute infarct. There is no evidence of an intracranial mass lesion, intracranial hemorrhage, or hydrocephalus. The visualized portions of the orbits, calvarium, paranasal sinuses, and skull base demonstrate no acute abnormality. IMPRESSION: No evidence of acute stroke. Chronic changes in the right hemisphere. .
--- NOTE | 2016-06-15 09:18 | NUR ---
NIH STROKE SCALE Patient reassessed by this CCU RN according to the NIH stroke scale. Scoring showed improvement from score of 2-3 to 9, and patient and both report improvements in speech and function of his limbs. Reported to Dr Sinclair and LUIS ENRIQUE Han.
[2016-06-15] MEDS: DULOXETINE 60 MG CAPSULE PO SCH (09:39)
[2016-06-15] MEDS: CIPROFLOXACIN 500 MG TABLET PO SCH (09:40)
[2016-06-15] MEDS: METRONIDAZOLE 500 MG TABLET PO SCH (09:40)
[2016-06-15] MEDS: PREGABALIN 100 MG CAPSULE PO SCH (09:41)
[2016-06-15] MEDS ORDERED: ASPI-557 PO (10:28)
--- NOTE | 2016-06-15 10:36 | DSPDOC ---
General Date Date DATE: 06/15/16 TIME: 10:33 Attending Physician Yenifer Sinclair MD Admitting Physician Yenifer Sinclair MD Consulting Physician Admitting Diagnosis TIA Discharge Diagnosis Muscle contractures Laboratory Laboratory Tests Test 06/14/16 14:30 06/14/16 14:51 06/14/16 17:16 06/14/16 21:27 Glucometer 235mg/dL (75-110) 177mg/dL (75-110) 250mg/dL (75-110) White Blood Count 6.4T/MM3 (4.5-11.0) Red Blood Count 5.09M/MM3 (4.50-5.90) Hemoglobin 16.4GM/DL (13.5-17.5) Hematocrit 49.2% (41-53) Mean Corpuscular Volume 96.7UM3 (80-100) Mean Corpuscular Hemoglobin 32.2UUG (26-34) Mean Corpuscular Hemoglobin Concent 33.3GM/DL (31-37) RDW Standard Deviation 40.0FL (36.9-50.2) Platelet Count 136T/MM3 (130-400) Mean Platelet Volume 12.3UM3 (9.4-12.4) Immature Granulocyte % (Auto) 0.2% (0.0-0.5) Neutrophils (%) (Auto) 51.2% (33-66) Lymphocytes (%) (Auto) 40.3% (23-45) Monocytes (%) (Auto) 6.1% (0-9.0) Eosinophils (%) (Auto) 2.0% (0-4) Basophils (%) (Auto) 0.2% (0-2) Absolute Immature Granulocyte (auto 0.01T/MM3 (0.00-0.03) Absolute Neutrophils (auto) 3.3T/MM3 (1.8-7.7) Absolute Lymphocytes (auto) 2.6T/MM3 (1-4.8) Absolute Monocytes (auto) 0.4T/MM3 (0-0.8) Absolute Eosinophils (auto) 0.1T/MM3 (0-0.5) Absolute Basophils (auto) 0.0T/MM3 (0-0.2) Prothromb Time International Ratio 1.08 (0.76-1.04) Activated Partial Thromboplast Time 34.2SEC (24-36) Turbidity < 20 (0-20) Sodium Level 145MEQ/L (134-144) Potassium Level 4.5MEQ/L (3.6-5) Chloride Level 104MEQ/L (98-107) Carbon Dioxide Level 29MEQ/L (22-30) Anion Gap 12MEQ/L (5-15) Blood Urea Nitrogen 12.0MG/DL (9-20) Creatinine 0.8MG/DL (0.8-1.5) Glomerular Filtration Rate Calc 103 BUN/Creatinine Ratio 15RATIO (6-26) Glucose Level 261MG/DL (75-110) Calculated Osmolality 288MOSM/KG (261-280) Calcium Level 10.1MG/DL (8.4-10.2) Total Bilirubin 0.80MG/DL (0.20-1.30) Icterus Index < 2 (0-7) Aspartate Amino Transf (AST/SGOT) 30U/L (17-59) Alanine Aminotransferase (ALT/SGPT) 49U/L (21-72) Alkaline Phosphatase 155U/L (38-126) Troponin I < 0.012ng/ml (0-0.12) Total Protein 7.2G/DL (6.3-8.2) Albumin 4.2G/DL (3.5-5.0) Globulin 3.0G/DL (2.4-3.6) Albumin/Globulin Ratio 1.4RATIO (1.1-2.2) Chemistry Specimen Hemolysis < 15 (0-25) Valproic Acid (Depakene) Level 39.3UG/ML (50-120) Radiology MRI brain with and without contrast showed no evidence of ischemia History of Present Illness This is a 50-year-old -[place] male presents with left-sided pain and weakness that started at 7 AM. He woke up feeling that way. There was headache on the left side. There's been some visual changes in both eyes for the past week or so. Patient is able to move the left side of his body normally but he states that it is painful, describes it as aching, and has not gone away over the past nearly 10 hours. He denies any syncope seizures visual irritation is. He denies any chest pain shortness of breath nausea vomiting or diaphoresis. For the past week he's had 2-4 episodes of loose stools a day. There's been no abdominal pain. He admits to not eating as much as he normally should. He does state he takes his medications as prescribed. There's been no dysuria or hematuria. This is different than when he had his stroke in 2008. States that for the past 3 weeks his blood sugars a bit higher than normal. States recently his glipizide was increased. Hospital Course Patient was placed on telemetry and showed no arrhythmias. Patient had an MRI brain with and without contrast which showed no evidence of ischemia or acute stroke. Upon further examination and interview the patient complains of increasing muscle spasms and contractures on the left side where his previous stroke occurred and admits to not taking the muscle relaxers he has at home. He has been advised to take the Zanaflex at home whenever these pain and spasms occur from now on. He is also being discharged home on a baby aspirin given his multiple risk factors of having an acute event. He is also to continue his statin therapy. Problems: Code Status Full Code Home Meds Reported Medications Glipizide (Glipizide) 10 Mg Tablet, 2 TAB PO DAILY, TAB 06/14/16 Pregabalin (Lyrica) 100 Mg Capsule, 1 CAP PO TID, #90 CAP 2 Refills 06/14/16 Multivitamin (One Daily) 1 Each Tablet, 1 TAB PO HS 06/14/16 Divalproex Sodium (Divalproex Sodium ER) 500 Mg Tab.er.24h, 1 TAB PO HS, #60 TAB 06/14/16 Trazodone HCl (Trazodone HCl) 100 Mg Tablet, 200 MG PO HS, TAB Take 2 (100 mg) tablets, by mouth, 3 times a day. 06/14/16 Duloxetine HCl (Duloxetine HCl) 60 Mg Capsule.dr, 1 CAP PO BID, CAP 06/14/16 Enalapril Maleate (Enalapril Maleate) 5 Mg Tablet, 5 MG PO DAILY 12/03/15 Atorvastatin Calcium (Atorvastatin Calcium) 80 Mg Tablet, 80 MG PO HS 12/03/15 Tizanidine HCl (Tizanidine HCl) 4 Mg Tablet, 4 MG PO Q8HR Y for PRN ORDERS 12/03/15 Hydrocodone/Acetaminophen ([place] 10-325 Tablet) 10-325 Tablet, 1 TAB PO TID 10/19/16 Face to Face Encounter I met with patient on the day of dismissal and discussed follow up appointments , medications, and safety plan. Discharge Disposition Patient discharged home YENIFER SINCLAIR MD June 15, 2016 10:35
--- NOTE | 2016-06-15 11:12 | NUR ---
DISCHARGE TO HOME VSS. RA. PAIN CONTROLLED WITH PRN HOME MEDS. GOOD APPETITE AND INTAKE. AND PT REPORT SYMPTOMS ARE NEARLY BACK TO BASELINE AND ARE OKAY WITH GOING HOME. TAKEN TO ER ENTRANCE VIA WHEELCHAIR. IS DRIVING PT HOME. Addendum: 06/15/16 at 1126 by NICHOLAS ZIEGLER RN NICOTINE PATCH REMOVED PRIOR TO DISCHARGE
--- NOTE | 2016-06-16 09:28 | NUR ---
MARLENE CONRAD IS 3. Addendum: 06/16/16 at 0928 by SUSANA MARTINEZ SW Amended: Links added.
== END 2016-06-15 11:12 | disposition home or self-care (01) ==
LOC: ED 14:14 → EDHOLD 16:19 → MED 16:38
PROVIDERS: ADMIT Internal Medicine; ATTEND Internal Medicine
DX: M62.49 Contracture of muscle, multiple sites (principal); Z79.899 Other long term (current) drug therapy; I69.354 Hemiplegia and hemiparesis following cerebral infarction affecting left non-dominant side; I69.398 Other sequelae of cerebral infarction; R19.7 Diarrhea, unspecified; E11.65 Type 2 diabetes mellitus with hyperglycemia; E11.49 Type 2 diabetes mellitus with other diabetic neurological complication; I10 Essential (primary) hypertension; F32.9 Major depressive disorder, single episode, unspecified; E78.5 Hyperlipidemia, unspecified; G40.909 Epilepsy, unspecified, not intractable, without status epilepticus; G89.29 Other chronic pain; F17.210 Nicotine dependence, cigarettes, uncomplicated
CPT/HCPCS: 70450; 70553; 80053; 80164; 82948; 84484; 85025; 85610; 85730; 93005; 96360; 96372; 99284; A9270; A9585; G0378; J7030; 99218

== ENCOUNTER 2016-12-22 11:44 | Observation (INO) ==
--- NOTE | 2016-12-22 12:00 | Emergency Department Report ---
General Adult HPI - General Chief complaint: Neuro Symptoms/Deficit Stated complaint: back pain/left leg dragging, poss stroke Time Seen by Provider: 12/22/16 11:52 Source: patient, family Mode of arrival: wheelchair Limitations: no limitations - History of Present Illness HPI narrative: 51-year-old male presents to the emergency department with a chief complaint of a potential increase in his left lower extremity weakness. Patient is unsure exactly when his symptoms began. Patient did note some facial droop and thick speech yesterday which has since resolved. Patient does state that however the loss of strength in his left lower extremity continues. He does note chronic entire left sided body pain which is neuropathic in nature and a part of his residual deficit from his prior hemorrhagic CVA. This is at baseline and has not changed in nature or characteristic. Patient does have chronic left-sided deficit from this. No other complaints or associated symptoms. He was at home when his symptoms began. Symptoms have been persistent in nature since onset. - Related Data Home Medications Medication Instructions Recorded Confirmed Atorvastatin Calcium 80 mg PO HS #0 12/03/15 12/22/16 Enalapril Maleate 5 mg PO DAILY #0 12/03/15 12/22/16 Tizanidine HCl 4 mg PO Q8HR PRN #0 12/03/15 12/22/16 Multivitamin [One Daily] 1 tab PO HS #0 06/14/16 12/22/16 Trazodone HCl 200 mg PO HS #0 tab 06/14/16 12/22/16 glipiZIDE [Glipizide] 10 mg PO BID #0 tab 06/14/16 12/22/16 Aspirin [Aspir 81] 81 mg PO DAILY 11/10/16 12/22/16 Duloxetine HCl 30 mg PO TID 11/10/16 12/22/16 Depakote ER (divalproex ER) 250 mg 500 mg PO DAILY tab 11/16/16 12/22/16 tablet, 24 hr Lyrica (pregabalin) 100 mg capsule 100 mg PO TID 11/16/16 12/22/16 lithium carbonate 150 mg capsule 150 mg PO HS cap 11/16/16 12/22/16 tadalafil 2.5 mg tablet 2.5 mg PO DAILY tab 11/16/16 12/22/16 Gabapentin 300 mg PO TID 12/22/16 12/22/16 Allergies Allergy/AdvReac Type Severity Reaction Status Date / Time metformin Allergy Unknown LOOSE Verified 11/10/16 12:46 STOOLS Review of Systems Constitutional: Denies: fever, chills Eyes: Denies: eye pain, vision change ENT: Denies: ear pain, throat pain Cardiovascular: Denies: chest pain, palpitations Respiratory: Denies: cough, dyspnea Gastrointestinal: Denies: abdominal pain, nausea, vomiting, diarrhea Genitourinary: Denies: urgency, dysuria Musculoskeletal: Denies: back pain, arthralgia Integumentary: Denies: erythema, rash Neurological: Reports: weakness. Denies: headache, numbness Psychiatric: Denies: anxiety, depression Endocrine: Denies: fatigue, heat or cold intolerance Hematological/Lymphatic: Denies: easy bleeding, easy bruising Allergic/Immunologic: Denies: facial swelling, urticaria PFSH Patient Stated Medical History Cerebrovascular Accident Yes Cataracts Yes Glaucoma Yes Hypertension Yes Diabetes Mellitus Type 2 Yes Depression Yes Clinic Medical History (Last Updated 11/15/16 @ 17:46 by Jesús Malone MD) Left leg weakness (Acute Medical) Type 2 diabetes mellitus with hyperglycemia (Acute Medical) Diabetes mellitus type 2, uncontrolled, without complications (Chronic Medical) Erectile dysfunction (Chronic Medical) Obesity (BMI 30-39.9) (Chronic Medical) Chronic pain (Inactive Medical) Surgical History: Neuro surgery Family History: Reviewed and noncontributory - Social History Smoking status: Current every day smoker Substance use type: does not use Alcohol intake frequency: does not drink Physical Exam - Limitations Limitations: no limitations - General General appearance: alert, in no apparent distress - Normal Exams: Head:: Normocephalic without trauma Eyes:: Pupils are PERRLA w/ EOMI, No scleral icterus, irritation, or foreign bodies noted ENMT:: No facial trauma, nasal exudates, pharyngeal erythema, or exudates are noted Dental: No fractured, loose, or missing teeth noted Neck:: Full range of motion, without adenopathy, JVD, bruits or thyromegaly Chest/Respirations:: Clear all cisneros, with good airflow, and symmetry bilaterally Cardiovascular:: Regular rate and rhythm, without murmur or gallop, Pulses 2+ all extremities, capillary refill, <2 seconds all extremities Abdomen:: Bowel sounds positive, soft, non-tender, non-distended, no hepatosplenomegaly, masses or bruits noted Lymphatic:: No lymphadenopathy, or lymphedema noted Musculoskeletal:: No tenderness, or deformity noted, good range of motion, all extremities Integumentary:: No rashes, hives, or bruising noted, hair and nails, without abnormality Neurological:: Patient is alert, and oriented (Alert and oriented x 4. CN 2-12 intact except for tongue deviation to L which is chronic. normal speech. normal motor. normal sensation. absent babinski bilat. reflexes at baseline. chronic left sidedweakness in LUE/LLE. ) Psychiatric:: Patient exhibits, appropriate attention, emotion and affect Course Vital Signs Temperature 98.3 F 12/22/16 11:46 Temperature 96.9 F 12/23/16 07:59 Pulse Rate 106 H 12/23/16 07:59 Respiratory Rate 18 12/23/16 07:59 Blood Pressure 152/77 H 12/23/16 07:59 Pulse Oximetry 95 12/23/16 07:59 Medical Decision Making - [facility] Narrative Medical decision making narrative: Labs / imaging were discussed in detail with the patient and family and questions are answered. Patient is given aspirin 324 mg by mouth [address] head and CT aorta were obtained. Patient is given 1 L normal saline intravenously. Patient is given 6 units of regular insulin subcutaneous 1 for treatment of hyperglycemia. Patient has no signs or symptoms of DKA. Patient is admitted to the service of Dr. Morton after discussion with him in improved condition. Patient and family are in agreement with the current plan of management. Accepting physician is in agreement with the current plan of management. Patient is admitted to the hospital in improved condition. No further orders. Patient was not a TPA candidate as exact time of onset is unknown and a clearcut ischemic stroke is not present. - Differential Diagnosis neuropathic pain, left sided weakness, TIA, CVA - Lab Data Result diagrams: 12/23/16 05:02 12/23/16 05:02 Lab Results 12/22/16 12/22/16 12/22/16 Range/Units 12:26 12:26 12:26 WBC 5.8 (4.5-11.0) T/MM3 RBC 5.10 (4.50-5.90) M/MM3 Hgb 15.9 (13.5-17.5) GM/DL Hct 47.5 (41-53) % MCV 93.1 (80-100) UM3 MCH 31.2 (26-34) UUG MCHC 33.5 (31-37) GM/DL RDW Std Deviation 39.8 (36.9-50.2) FL Plt Count 150 (130-400) T/MM3 MPV 12.2 (9.4-12.4) UM3 Immature Gran % (Auto) 0.3 (0.0-0.5) % Neut % (Auto) 57.9 (33-66) % Lymph % (Auto) 35.4 (23-45) % [place] % (Auto) 5.2 (0-9.0) % Eos % (Auto) 1.0 (0-4) % Baso % (Auto) 0.2 (0-2) % Neut # (Auto) 3.4 (1.8-7.7) T/MM3 Lymph # (Auto) 2.1 (1-4.8) T/MM3 [place] # (Auto) 0.3 (0-0.8) T/MM3 Eos # (Auto) 0.1 (0-0.5) T/MM3 Baso # (Auto) 0.0 (0-0.2) T/MM3 Abs Immat Gran (auto) 0.02 (0.00-0.03) T/MM3 INR 0.99 (0.99-1.21) APTT 30.2 (24-36) SEC Turbidity < 20 (0-20) Sodium 141 (134-144) MEQ/L Potassium 4.4 (3.6-5) MEQ/L Chloride 103 (98-107) MEQ/L Carbon Dioxide 25 (22-30) MEQ/L Anion Gap 13 (5-15) MEQ/L BUN 11.0 (9-20) MG/DL Creatinine 0.9 (0.8-1.5) MG/DL GFR Calculation 89 BUN/Creatinine Ratio 12 (6-26) RATIO Glucose 363 H (75-110) MG/DL Calculated Osmolality 285 H (261-280) MOSM/KG Calcium 9.6 (8.4-10.2) MG/DL Total Bilirubin 0.40 (0.20-1.30) MG/DL Icterus Index < 2 (0-7) AST 27 (17-59) U/L ALT 47 (21-72) U/L Alkaline Phosphatase 146 H (38-126) U/L Troponin I < 0.012 (0-0.12) ng/ml Total Protein 7.3 (6.3-8.2) G/DL Albumin 4.3 (3.5-5.0) G/DL Globulin 3.0 (2.4-3.6) G/DL Albumin/Globulin Ratio 1.4 (1.1-2.2) RATIO Specimen Hemolysis 29 H (0-25) Ur Collection Type Urine Color (YELLOW) Urine Clarity Urine pH (5.0-8.0) Ur Specific [place] (1.015-1.025) Urine Protein (NEGATIVE) Urine Glucose (UA) (NEGATIVE) Urine Ketones (NEGATIVE) Urine Occult Blood (NEGATIVE) Urine Nitrate (NEGATIVE) Urine Bilirubin (NEGATIVE) Urine Urobilinogen (NORMAL) EU/DL Ur Leukocyte Esterase (NEGATIVE) Urinalysis Comment 12/22/16 Range/Units 13:43 WBC (4.5-11.0) T/MM3 RBC (4.50-5.90) M/MM3 Hgb (13.5-17.5) GM/DL Hct (41-53) % MCV (80-100) UM3 MCH (26-34) UUG MCHC (31-37) GM/DL RDW Std Deviation (36.9-50.2) FL Plt Count (130-400) T/MM3 MPV (9.4-12.4) UM3 Immature Gran % (Auto) (0.0-0.5) % Neut % (Auto) (33-66) % Lymph % (Auto) (23-45) % [place] % (Auto) (0-9.0) % Eos % (Auto) (0-4) % Baso % (Auto) (0-2) % Neut # (Auto) (1.8-7.7) T/MM3 Lymph # (Auto) (1-4.8) T/MM3 [place] # (Auto) (0-0.8) T/MM3 Eos # (Auto) (0-0.5) T/MM3 Baso # (Auto) (0-0.2) T/MM3 Abs Immat Gran (auto) (0.00-0.03) T/MM3 INR (0.99-1.21) APTT (24-36) SEC Turbidity (0-20) Sodium (134-144) MEQ/L Potassium (3.6-5) MEQ/L Chloride (98-107) MEQ/L Carbon Dioxide (22-30) MEQ/L Anion Gap (5-15) MEQ/L BUN (9-20) MG/DL Creatinine (0.8-1.5) MG/DL GFR Calculation BUN/Creatinine Ratio (6-26) RATIO Glucose (75-110) MG/DL Calculated Osmolality (261-280) MOSM/KG Calcium (8.4-10.2) MG/DL Total Bilirubin (0.20-1.30) MG/DL Icterus Index (0-7) AST (17-59) U/L ALT (21-72) U/L Alkaline Phosphatase (38-126) U/L Troponin I (0-0.12) ng/ml Total Protein (6.3-8.2) G/DL Albumin (3.5-5.0) G/DL Globulin (2.4-3.6) G/DL Albumin/Globulin Ratio (1.1-2.2) RATIO Specimen Hemolysis (0-25) Ur Collection Type Urine, clean catch Urine Color Yellow (YELLOW) Urine Clarity Clear Urine pH 6.5 (5.0-8.0) Ur Specific [place] 1.010 L (1.015-1.025) Urine Protein Negative (NEGATIVE) Urine Glucose (UA) 3+ A (NEGATIVE) Urine Ketones Negative (NEGATIVE) Urine Occult Blood Negative (NEGATIVE) Urine Nitrate Negative (NEGATIVE) Urine Bilirubin Negative (NEGATIVE) Urine Urobilinogen 0.2 (NORMAL) EU/DL Ur Leukocyte Esterase Negative (NEGATIVE) Urinalysis Comment Microscopic not ind. - Radiology Data CT HEAD - No acute processes. CTA Aorta - Negative. - EKG Data EKG #1 EKG results narrative: Sinus tachycardia. 100 bpm. No STEMI. Disposition Clinical Impression: left leg weakness Type 2 diabetes mellitus with hyperglycemia Qualifiers: Diabetes mellitus watermelon inspector insulin use: unspecified watermelon inspector insulin use status Qualified Code(s): E11.65 - Type 2 diabetes mellitus with hyperglycemia Disposition: [address] [facility] Condition: Stable Time of Disposition: 14:00 (Admit. Dr. Morton. ) - Seen By: physician
--- NOTE | 2016-12-22 12:16 | CT Scan Report ---
Indication: LEFT LEG DRAGGING, BACK PAIN PROCEDURE: CT head/brain wo con: Encounter: Initial Comparison: Head CT dated June 14, 2016 Technique: Axial CT images through the head were performed without contrast. Iterative Reconstruction dose reducing technique was utilized. FINDINGS: Chronic extensive right MCA territory infarct involving the frontal and temporal lobes with right-sided encephalomalacia and ex vacuo dilatation of the right lateral ventricle. The appearance is stable. No obvious new territorial stroke. Scattered periventricular white matter disease elsewhere, most pronounced in the left frontal lobe. The ventricles are unchanged. No masses or midline shift. No acute intracranial hemorrhage. No acute calvarial fracture. Right frontal craniotomy changes. The paranasal sinuses are well aerated and free of significant disease. The tympanic and mastoid cavities appear normal. IMPRESSION: No acute intracranial abnormality or hemorrhage. Stable head CT. .
[2016-12-22] MEDS: SALINE FLUSH 10ml SYRINGE IVF PRN ×2 (12:25→15:00)
--- NOTE | 2016-12-22 12:29 | XRay Report ---
Indication: left weakness PROCEDURE: XR chest 1V: Encounter: Initial Comparison: None Findings: The lungs are clear. No pleural effusion or pneumothorax. The heart size is within normal limits. There is a dilated appearing aortic knob measuring over 5 cm in diameter. Pulmonary vascularity appears normal. Impression: 1. No pneumonia or congestive failure. 2. Enlarged appearance of the aortic knob could represent ectasia or aneurysm. No available comparison study to evaluate for interval stability. .
[2016-12-22] MEDS ORDERED: SALINE FLUSH 10ml SYRINGE ONE (12:49)
[2016-12-22] MEDS ORDERED: NS 100 ML ONE (12:49)
[2016-12-22] MEDS ORDERED: IOHEXOL 350mg/ml 75ml INJECTION ONE ×2 (12:49)
[2016-12-22] MEDS ORDERED: IOHEXOL 350mg/ml 50ml INJECTION ONE (12:49)
--- NOTE | 2016-12-22 13:33 | CT Scan Report ---
Indication: abnl cxr PROCEDURE: CT angio aorta: Encounter: Initial Comparison: Chest x-ray from today Technique: Axial CT angiographic imaging of the chest, abdomen and pelvis was performed before and after the administration of intravenous contrast. Coronal and sagittal MIP reconstructed images were created and reviewed. Three-dimensional surface shaded volume rendered imaging of the aorta and arterial vasculature was created by the technologist on a dedicated workstation under the direction of the interpreting radiologist and reviewed. Automated Exposure Control and Iterative Reconstruction dose reducing techniques were utilized. Contrast: 120 mL Omnipaque 350 Findings: CTA chest with and without contrast: Noncontrast CT imaging shows no evidence of intramural hematoma. Postcontrast images show no evidence of aortic aneurysm, ectasia or dissection. The findings on chest x-ray presumably due to slight patient rotation. The thoracic aorta is normal for age. The lungs are clear. No pleural effusion or pneumothorax. The central airways are patent. No axillary or mediastinal adenopathy. Heart size is normal. No pericardial effusion. CT angiogram of the abdomen and pelvis with and without contrast: Abdominal aorta is also normal in caliber. No evidence of dissection or aneurysm. The celiac, SMA and HALLE origins are normal. Bilateral renal arteries are widely patent. Arterial phase liver is grossly normal. The gallbladder is contracted. The spleen, pancreas, adrenal glands and kidneys are negative for acute findings. Tiny low-attenuation foci in both kidneys, too small to definitively characterize. No evidence of bowel obstruction. No adenopathy seen in the abdomen or pelvis. Bone windows show no acute findings. Impression: CT angiogram of the chest with and without contrast: Normal exam. CT angiogram of the abdomen and pelvis with and without contrast: No acute aortic syndrome seen. No acute disease process. .
--- OUTSIDE RECORDS SUMMARY | 2016-12-22 13:41 | External Medical Summary | Clinical Summary ---
:1965 Author Organization [facility] Address [address] [place] [address] Phone Care Team Providers Name Role Phone Unavailable Primary Care Provider Unavailable Source Comments Some departments are not documenting in the electronic medical record. If you do not see the information that you expected, contact Release of Information in the Health Information Management department at [phone] for further assistance in locating additional records.[facility] Allergies No Known Allergies Current Medications Prescription Sig. Disp. Refills Start Date End Date Status blood sugar diagnostic 1 Each by Test route 3 box 3 06/13/2012 Active (CONTOUR NEXT STRIPS) twice daily before test strip meals. Needs contour strips. Tests blood sugars BID. zonisamide (ZONEGRAN) Take 100 mg by mouth Active 100 mg capsule daily. At HS, Per neurologist other medication Pt needs home BP 1 Each 0 02/21/2013 Active cuff to monitor pressures. Dx : HTN and CVA 401.9 and 434.91 atorvastatin (LIPITOR) Take 1 Tab by mouth 90 Tab 3 03/19/2013 Active 10 mg tablet daily. lisinopril-hydrochloro Take 1 Tab by mouth 90 Tab 3 04/11/2013 Active thiazide (PRINZIDE, daily. ZESTORETIC) 10-12.5 mg tablet glimepiride (AMARYL) 4 Take 1 Tab by mouth 90 Tab 3 05/16/2013 Active mg tablet daily with breakfast. For diabetes other medication NATALY Jasso, one pair 1 Dose 0 11/07/2013 Active pregabalin (LYRICA) 75 Take 1 Cap by mouth 180 Cap 3 11/10/2013 Active mg capsule twice daily. baclofen (LIORESAL) 20 Take 1 Tab by mouth 270 Tab 3 11/15/2013 Active mg tablet three times daily. HYDROcodone-acetaminop Take 1 Tab by mouth 60 Tab 0 11/15/2013 Active hen(+) (NORCO) 7.5-325 every 8 hours as mg tablet needed for Pain. phenytoin SR Take 1 Cap by mouth 270 Cap 3 11/15/2013 Active (DILANTIN) 100 mg three times daily. capsule sertraline (ZOLOFT) Take 1 Tab by mouth 135 Tab 3 11/15/2013 Active 100 mg tablet daily. Take 1 and 1/2 pills daily. Active Problems Problem Noted Date Diabetic peripheral neuropathy ([facility]) 07/11/2013 Glaucoma suspect of both eyes 04/23/2013 Overview: D/t large C/Ds OU and C/D asymmetry (OS>OD) Patient states he's been followed for glaucoma before, but never started on eye drops Last Assessment & Plan: Educated patient on condition. RTC 1 month for glaucoma testing at [place] location (VF 24-2 LUANNE FAST, RNFL OCT, gonio, pachymetry, IOP) Astigmatism with presbyopia 04/23/2013 Last Assessment & Plan: Prescription for glasses provided to patient. Monitor yearly. Hyperlipidemia 03/19/2013 Depression 08/04/2012 Hypertension 07/06/2012 Last Assessment & Plan: Without retinopathy OU. Reviewed with patient need for good blood pressure control to maintain ocular health. Monitor yearly. CVA (cerebral infarction) 04/25/2012 Overview: Hemorrhagic in '09 or'10 ([place]). Deficits include R arm paralysis, L leg weakness, spasticity, gait abnormality. Will refer to PT/OT for evaluation and to see what items might be needed for home safety. Also he needs a gait evaluation for possible walker or scooter. I have requested old records. Any Neuro input would be appreciated. Diabetes mellitus ([facility]) 04/25/2012 Overview: Last A1c normal. A1c pending. Will follow and restart Metformin if needed. Last Assessment & Plan: Without retinopathy OU. Reviewed with patient need for tight control of diabetes to help maintain ocular health. Monitor yearly. History of hypertension 04/25/2012 Overview: Continue to follow. Seizure disorder ([facility]) 04/25/2012 Overview: Refer to Neurology for management. Abnormality of gait following cerebrovascular accident 04/25/2012 Overview: Gait eval. Family History Medical History Relation Name Comments Asthma Brother Heart Disease Brother High Cholesterol Brother Heart Disease Daughter High Cholesterol Daughter Alcohol abuse Father Arthritis Father Cancer Father Depression Father Diabetes Father Heart Disease Father High Cholesterol Father Arthritis Maternal Grandfather Diabetes Maternal Grandfather Heart Disease Maternal Grandfather High Cholesterol Maternal Grandfather Heart Disease Maternal Grandmother High Cholesterol Maternal Grandmother Diabetes Mother Heart Disease Mother High Cholesterol Mother Arthritis Paternal Grandfather Heart Disease Paternal Grandfather High Cholesterol Paternal Grandfather Alzheimer's Paternal Grandmother Arthritis Paternal Grandmother Heart Disease Paternal Grandmother High Cholesterol Paternal Grandmother Heart Disease Sister High Cholesterol Sister Heart Disease Son High Cholesterol Son Relation Name Status Comments Brother Daughter Father Maternal Grandfather Maternal Grandmother Mother Paternal Grandfather Paternal Grandmother Sister Son Social History Tobacco Use Types Packs/Day Years Used Date Current Every Day Smoker Cigarettes 0.25 30 Smokeless Tobacco: Never Used Tobacco Cessation: Ready to Quit: Yes; Counseling Given: Yes Alcohol Use Drinks/Week oz/Week Comments No Sex Assigned at Date Recorded Not on file Last Filed Vital Signs Vital Sign Reading Time Taken Blood Pressure 146/80 11/07/2013 11:01 AM CDT Pulse 74 11/07/2013 11:01 AM CDT Temperature 37.1 C (98.8 F) 11/07/2013 11:01 AM CDT Respiratory Rate 16 11/07/2013 11:01 AM CDT Oxygen Saturation 96% 05/01/2013 7:00 PM CDT Inhaled Oxygen Concentration - - Weight 136.1 kg (300 lb) 09/26/2013 8:09 AM CDT Height 188 cm (6' 2") 09/26/2013 8:09 AM CDT Body Mass Index 38.52 09/26/2013 8:09 AM CDT Plan of Treatment Health Maintenance Due Date Last Done Comments PHYSICAL (COMPREHENSIVE) 1973 EXAM PERTUSSIS VACCINE 1977 HBA1C 01/10/2014 07/10/2013, 03/09/2013, 04/24/2012 MICROALBUMIN 03/09/2014 03/09/2013, 04/24/2012 FOOT EXAM 04/02/2014 04/02/2013 DILATED EYE EXAM 04/23/2014 04/23/2013, 04/23/2013 (Previously completed), 10/23/2012 (Previously completed) INFLUENZA VACCINE 09/14/2016 10/31/2012 (Previously completed), 09/17/2012 COLORECTAL CANCER SCREENING 2016 TETANUS VACCINE 03/01/2017 03/01/2007 (Previously completed) PNEUMONIA VACCINE (DM) Addressed 11/22/2011 Overridden with the (Previously intention of not completed) completing the topic
[2016-12-22] MEDS ORDERED: NS 1,000 ML IV ONE (14:27)
[2016-12-22] MEDS ORDERED: INSULIN REGULAR, HUMAN 100 UNIT/ML INJECTION SQ ONE (14:27)
[2016-12-22] MEDS ORDERED: ASPIRIN 81 MG CHEWABLE TABLET PO ONE (14:27)
--- NOTE | 2016-12-22 15:33 | History & Physical Report ---
History of Present Illness Date: 12/22/16 Chief complaint: left leg weakness HPI: Patient is a 51 left [place] male who is known to the Hospital services following a recent admission in June 2016 with left-sided weakness and pain. Patient was noted to have slurred speech yesterday, today he awoke and had increased left leg weakness, accompanied with pain radiating down his entire leg. noted leg was dragging when he attempted to ambulate. He spoke with his primary care provider, Dr. Marino Monahan in [facility] and is recommended to present to the closest emergency room. He presented to [facility] ER today for acute evaluation and treatment. CBC was found to be normal, CMP normal other than elevated glucose of 363. Troponin negative. INR 0.99, urinalysis 3+ glucose, otherwise unremarkable. CT scan of the aorta was performed which was found to be normal. CT scan of the head was also obtained showing no acute intracranial abnormality or hemorrhage, patient does have a history of right-sided encephalomalacia with history of right frontal craniotomy in 2008. Given patients history, accompanied with risk factors and ongoing left leg weakness. The hospitalist services were contacted and accepted patient for outpatient admission for further evaluation and treatment. It is expected that his stay will be less than 2 overnights. [place] is seen while still in the emergency room initially. He is alert, oriented and pleasant. He does describe having frequent episodes of left lower extremity weakness, accompanied with pain as well as chronic lumbar pain. He does report having intermittent episodes in which she has incontinence of stool and urine. However, this is not new. Denies any recent fall or injuries. He does report having chronic intermittent headaches. Recently changed primary care providers from Briana Case to Dr. Marino Monahan at [facility]. Did discuss advanced directives and he does wish to be a full code Review of Systems All systems PM: 10-point ROS was reviewed, no additional remarkable complaints except - Gastrointestinal Gastrointestinal Comments: Intermittent chronic incontinence - Musculoskeletal Musculoskeletal: Present: back pain (lumbar) - Neurological Neurological: Present: as per HPI, focal weakness (LLE) PFSH Medical History Hemorrhagic CVA.-2008 Hypertension Seizure disorder Diabetes mellitus type 2, uncontrolled, without complications Erectile dysfunction Obesity (BMI 30-39.9) Chronic pain -back Surgical History: Craniotomy - Social History Smoking status: Current every day smoker Alcohol intake frequency: does not drink Housing: house Current residence: Apartment/Private Home Social history: PCP Dr Marino Monahan ([facility]) Medications Home Medications Medication Instructions Recorded Confirmed Type Atorvastatin Calcium 80 mg PO HS #0 12/03/15 12/22/16 History Enalapril Maleate 5 mg PO DAILY #0 12/03/15 12/22/16 History Tizanidine HCl 4 mg PO Q8HR PRN #0 12/03/15 12/22/16 History Multivitamin [One Daily] 1 tab PO HS #0 06/14/16 12/22/16 History Trazodone HCl 200 mg PO HS #0 tab 06/14/16 12/22/16 History glipiZIDE [Glipizide] 10 mg PO BID #0 tab 06/14/16 12/22/16 History Aspirin [Aspir 81] 81 mg PO DAILY 11/10/16 12/22/16 History Duloxetine HCl 30 mg PO TID 11/10/16 12/22/16 History Depakote ER (divalproex ER) 250 mg 500 mg PO DAILY tab 11/16/16 12/22/16 History tablet, 24 hr Lyrica (pregabalin) 100 mg capsule 100 mg PO TID 11/16/16 12/22/16 History lithium carbonate 150 mg capsule 150 mg PO HS cap 11/16/16 12/22/16 History tadalafil 2.5 mg tablet 2.5 mg PO DAILY tab 11/16/16 12/22/16 History Gabapentin [Gabapentin] 300 mg PO TID 12/22/16 12/22/16 History Allergies Allergy/AdvReac Type Severity Reaction Status Date / Time metformin Allergy Unknown LOOSE Verified 11/10/16 12:46 STOOLS Exam Vital Signs: Temperature 98.3 F 12/22/16 11:46 Pulse Rate 96 12/22/16 15:01 Respiratory Rate 22 12/22/16 15:01 Blood Pressure 137/80 12/22/16 15:01 Pulse Oximetry 96 12/22/16 15:01 Telemetry Rhythm: Sinus Rhythm - Constitutional Present: no acute distress, well nourished, well developed - Routine HEENT Exam Eye: Present: EOMI, PERRL ENT: Present: mucous membranes moist, dentition normal - Routine Respiratory Exam Present: CTA bilaterally. Absent: wheezes - Routine Cardiovascular Exam Present: RRR, S1, S2. Absent: murmur - Routine Abdominal Exam Present: soft, normoactive bowel sounds, non distended. Absent: tenderness - Routine Extremities Exam Present: pulses intact Comments: LLE weak- 2/5 RLE 5/5 - Routine Skin Exam Present: intact, dry, warm - Routine Neurological Exam Present: alert, oriented X3, CN II-XII intact, vision grossly intact, hearing grossly intact. Absent: sensory deficit - Detailed Neurological Exam Cranial nerves: Normal CN II, Normal CN III, Normal CN IV, Normal CN V, Normal CN , Normal CN VII, Normal CN VIII, Normal CN IX, Normal CN X, Normal CN XI, Normal CN XII Neuro motor strength exam: LLE 3/5, LUE 1/5 (Chronic weakness from prior stroke) , RUE 5/5 - Routine Psychiatric Exam Present: normal affect Results - Labs CBC & Chem 7: 12/22/16 12:26 12/22/16 12:26 Assessment and Plan (1) Left leg weakness Current visit: Yes Status: Acute Assessment and Plan: Impression Acute left lower extremity weakness- Acute on chronic Chronic left-sided weakness secondary to hemorrhagic CVA in 2008 Type II diabetes Hypertension Dyslipidemia Seizure disorder Chronic back pain Obesity with BMI 34.6 Plan Admit to outpatient observation under the care of Dr. Rosales for left lower extremity weakness. CT shows no acute bleed or stroke. Will obtain an MRI of the brain for evaluation of acute stroke. Patient does also have chronic back pain, will obtain lumbar spine films. This may need further workup in the outpatient setting to rule out disc or stenosis. Monitor are Accu-Cheks. Speech therapy evaluation for evaluation of dysphasia. Consult for PT and OT to evaluate strength and function. does note patient was scheduled to start outpatient physical therapy in [place] tomorrow. Telemetry to monitor for cardiac dysrhythmias. SCDs to bilateral lower extremity for DVT prophylaxis. Continue with home medications including Depakote for seizure disorder. Continue ASA, adding Plavix due to concern for stroke occurring despite ASA therapy. Recheck CBC and BMP tomorrow morning to follow blood counts, renal function and electrolytes. Will check Lipid profile. Patient does request to be a Full Code and this order is written. Care and orders discussed with attending Dr Rosales. At time of discharge primary medical care will return to Dr Marino Monahan in [place] Have independently interviewed and examined pt. Chart reviewed. Case discussed with Dr Connor in ED and my SCIENCE TEACHER. Care plan developed with my supervision; agree with above. Noted slurring of speech yesterday. Some continuation today, but left leg more weak. Drags his leg around, not moving as normal. Increased low back pain and pain to leg. No trauma or injury. Notes mild BELLO. No viral syndrome. No f/c. Breathing stable. No chest pressure or pain. Some variability to appetite. Stools loose the last 4 days. No urinary pain or discomfort. Lungs: clear CV: regular AB: soft nt/nd +BS MSE: awake alert Plan: OBS for further evaluation of possible stroke. MRI brain. Carotid Doppler/ ECHO. PT/OT/Speech. Add Plavix - if MRI shows no acute stroke, would return to ASA therapy. Continue home medications. Monitor lab. Resuscitation Status: Full Code Hospital Course Summary Disclaimer: The visit summary below is not to be considered part of the above Progress Note. Hospital Course: 12/22/16 Impression Acute left lower extremity weakness- Acute on chronic Chronic left-sided weakness secondary to hemorrhagic CVA in 2008 Type II diabetes next line hypertension Dyslipidemia Seizure disorder Chronic back pain Plan Admit to outpatient observation under the care of Dr. Rosales for left lower extremity weakness Inpatient history of intracranial hemorrhage. Will obtain an MR I of the brain. Patient does also have chronic back pain, will obtain lumbar spine films. This may need further workup in the outpatient setting to rule out disc or stenosis. Monitor are Accu-Cheks Speech therapy evaluation for evaluation of dysphasia Consult for PT and OT to evaluate strength and function. does note patient was scheduled to start outpatient physical therapy in [place] tomorrow. Telemetry to monitor for cardiac dysrhythmias SCDs to bilateral lower extremity for DVT prophylaxis Continue with home medications including Depakote for seizure disorder Initiate ASA and Plavix Recheck CBC and BMP tomorrow morning to follow blood counts, renal function and electrolytes Patient does request to be a Full Code and this order is written Care and orders discussed with attending Dr Rosales At time of discharge primary medical care will return to Dr Marino Monahan in [place]
[2016-12-22] MEDS ORDERED: ACETAMINOPHEN 325 MG TABLET PO PRN (15:45)
[2016-12-22] MEDS ORDERED: POLYETHYL GLYCOL 3350 17gm PACKET PO PRN (15:45)
[2016-12-22] MEDS ORDERED: ONDANSETRON 4 MG/2 ML INJECTION IVP PRN (15:45)
[2016-12-22] MEDS ORDERED: BISACODYL 10 MG SUPPOSITORY RECTALLY PRN (15:45)
[2016-12-22] MEDS ORDERED: CLOPIDOGREL 75 MG TABLET PO SCH (15:45)
[2016-12-22 15:49] VITALS: BMI 34.6
--- NOTE | 2016-12-22 17:13 | XRay Report ---
Indication: lumbar back pain PROCEDURE: XR lumbar spine 2-3V: Encounter: Initial Comparison: None Findings: Alignment of the lumbar spine is within normal limits. No acute fracture or subluxation seen. Mild disk space narrowing at L1-L2. The remaining disk spaces are maintained. Mild degenerative facet disease at L5-S1. Contrast material in the renal collecting system and bladder. Impression: No acute fracture. .
--- NOTE | 2016-12-22 17:15 | Magnetic Resonance Report ---
Indication: Left leg weakness, Hx brain hemorrhage PROCEDURE: MR head/brain wo con: Encounter: Initial Comparisons: Head CT from earlier today and brain MRI dated June 14, 2016 Technique: Multiplanar, multisequence, MR imaging of the head without contrast was acquired. FINDINGS: No acute restricted diffusion. Extensive encephalomalacia in the right temporal and parietal lobes from prior MCA territory strokes. No acute intracranial hemorrhage. Ventricles are stable. No midline shift. Volume loss in the right cerebral hemisphere with corresponding dilatation of the right lateral ventricle. Exam is limited due to motion artifact on several sequences. Postoperative changes in the right frontal calvarium. Impression: Limited exam due to motion artifact. No evidence of acute stroke or intracranial hemorrhage. No change from the comparison. .
[2016-12-22] MEDS: GlipiZIDE 5 MG TABLET PO SCH (18:37)
[2016-12-22] MEDS ORDERED: ATORVASTATIN 40 MG TABLET PO SCH (21:00)
[2016-12-22] MEDS ORDERED: MULTI-VITAMIN PLAIN TABLET PO SCH (21:00)
[2016-12-22] MEDS ORDERED: GlipiZIDE 5 MG TABLET PO SCH (21:00)
[2016-12-22] MEDS ORDERED: LITHIUM CARBONATE 150 MG CAPSULE PO SCH (21:00)
[2016-12-22] MEDS ORDERED: TRAZODONE 100 MG TABLET PO SCH (21:00)
[2016-12-22] MEDS: PREGABALIN 100 MG CAPSULE PO SCH (21:29)
[2016-12-22] MEDS: DULOXETINE 30 MG CAPSULE PO SCH (21:29)
[2016-12-22] MEDS: GABAPENTIN 300 MG CAPSULE PO SCH (21:29)
[2016-12-22] MEDS: INSULIN REGULAR, HUMAN 100 UNIT/ML INJECTION SQ PRN (21:30)
[2016-12-23 00:11] VITALS: O2SAT 95
[2016-12-23] MEDS: INSULIN REGULAR, HUMAN 100 UNIT/ML INJECTION SQ PRN ×2 (06:13→10:27)
[2016-12-23 08:00] VITALS: BP 152/77; PULSE 106; RESP 18; TEMP 96.9
[2016-12-23] MEDS: PREGABALIN 100 MG CAPSULE PO SCH (08:56)
[2016-12-23] MEDS: GABAPENTIN 300 MG CAPSULE PO SCH (08:56)
[2016-12-23] MEDS: GlipiZIDE 5 MG TABLET PO SCH (08:57)
[2016-12-23] MEDS: DULOXETINE 30 MG CAPSULE PO SCH (08:57)
[2016-12-23] MEDS ORDERED: ASPIRIN *EC* 81 MG TABLET PO SCH (09:00)
--- NOTE | 2016-12-23 09:04 | Ultrasound Report ---
Indication: LLE weakness, ? CvA PROCEDURE: US carotid doppler BI: TECHNIQUE: Grayscale, color and duplex Doppler imaging was performed of the carotid systems bilaterally. Velocities in cm/sec - validated velocity measurements with angiographic measurements, velocity criteria are extrapolated from diameter data as defined by the Society of Radiologists in Ultrasound Consensus Conference Radiology 2003; 229;340-346. RIGHT: PSV ICA 49.6 EDV ICA 19.4 PSV CCA 70.5 EDV CCA 18 PSV ECA 54.1 ICA Diameter reduction 0% (<0.8)% LEFT: PSV ICA 51.3 EDV ICA 17.4 PSV CCA 96.2 EDV CCA 22.4 PSV ECA 73.9 ICA Diameter reduction 0% (<0.8)% The right vertebral artery is patent with cephalic flow. The left vertebral artery is patent with cephalic flow. No significant atherosclerotic plaque identified. No velocity elevation. IMPRESSION: No hemodynamically significant carotid stenosis. .
--- NOTE | 2016-12-23 11:13 | Discharge Summary ---
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 CT angiogram of the abdomen and pelvis with and without contrast: No acute aortic syndrome seen. No acute disease process. Chest Xray- Impression: 1. No pneumonia or congestive failure. 2. Enlarged appearance of the aortic knob could represent ectasia or aneurysm. No available comparison study to evaluate for interval stability. CT scan of the head- IMPRESSION: No acute intracranial abnormality or hemorrhage. Stable head CT. Lumbar spine x-ray- No acute fracture. Mild disk narrowing at L1-L2 MRI of the brain- Impression: Limited exam due to motion artifact. No evidence of acute stroke or intracranial hemorrhage. No change from the comparison. Carotid Doppler- IMPRESSION: No hemodynamically significant carotid stenosis. - Pathology None History of Present Illness HPI: Patient is a 51 left [place] male who is known to the Hospital services following a recent admission in June 2016 with left-sided weakness and pain. Patient was noted to have slurred speech yesterday, today he awoke and had increased left leg weakness, accompanied with pain radiating down his entire leg. noted leg was dragging when he attempted to ambulate. He spoke with his primary care provider, Dr. Reyna Monahan in [facility] and is recommended to present to the closest emergency room. He presented to [facility] ER today for acute evaluation and treatment. CBC was found to be normal, CMP normal other than elevated glucose of 363. Troponin negative. INR 0.99, urinalysis 3+ glucose, otherwise unremarkable. CT scan of the aorta was performed which was found to be normal. CT scan of the head was also obtained showing no acute intracranial abnormality or hemorrhage, patient does have a history of right-sided encephalomalacia with history of right frontal craniotomy in 2009. Given patients history, accompanied with risk factors and ongoing left leg weakness. The hospitalist services were contacted and accepted patient for outpatient admission for further evaluation and treatment. It is expected that his stay will be less than 2 overnights. [place] is seen while still in the emergency room initially. He is alert, oriented and pleasant. He does describe having frequent episodes of left lower extremity weakness, accompanied with pain as well as chronic lumbar pain. He does report having intermittent episodes in which she has incontinence of stool and urine. However, this is not new. Denies any recent fall or injuries. He does report having chronic intermittent headaches. Recently changed primary care providers from Briana Case to Dr. Reyna Monahan at [facility]. Did discuss advanced directives and he does wish to be a full code Objective Vital signs: Temperature 96.9 F 12/23/16 07:59 Pulse Rate 106 H 12/23/16 07:59 Respiratory Rate 18 12/23/16 07:59 Blood Pressure 152/77 H 12/23/16 07:59 Pulse Oximetry 95 12/23/16 07:59 Height/Weight/BMI: Height 1.91 m Weight 124.4 kg Body Mass Index 34.6 - Constitutional Present: no acute distress, well nourished, well developed - Routine HEENT Exam Eye: Present: EOMI ENT: Present: mucous membranes moist, dentition normal - Routine Respiratory Exam Present: CTA bilaterally. Absent: wheezes - Routine Cardiovascular Exam Present: RRR, S1, S2. Absent: murmur - Routine Abdominal Exam Present: soft, normoactive bowel sounds, non distended. Absent: tenderness - Routine Extremities Exam Present: no edema - Routine Back/Spine/Pelvis Exam Back/Spine: Present: paraspinal tenderness - Routine Skin Exam Present: intact, dry, warm - Routine Neurological Exam Present: alert, oriented X3, motor deficit (LUE- chronic, LLE- intermittent), vision grossly intact, hearing grossly intact, normal speech. Absent: facial asymmetry Hyperactive reflex to left lower extremity Normal reflex to right lower extremity CN- 3-12 intact - Routine Lymphatic Exam Lymphatic: Absent: adenopathy - Routine Psychiatric Exam Present: normal affect, cooperative Hospital Course This is a general summary of the patient's hospital course. For more details refer to the complete medical record. 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 Rosales for left lower extremity weakness Inpatient history of intracranial hemorrhage. Will obtain an MR I of the brain. Patient does also have chronic back pain, will obtain lumbar spine films. This may need further workup in the outpatient setting to rule out disc or stenosis. [facility] Speech therapy evaluation for evaluation of dysphasia Consult for PT and OT to evaluate strength and function. does note patient was scheduled to start outpatient physical therapy in [place] tomorrow. Telemetry to monitor for cardiac dysrhythmias SCDs to bilateral lower extremity for DVT prophylaxis Continue with home medications including Depakote for seizure disorder Initiate ASA and Plavix Recheck CBC and BMP tomorrow morning to follow blood counts, renal function and electrolytes Patient does request to be a Full Code and this order is written Care and orders discussed with attending Dr Rosales At time of discharge primary medical care will return to Dr Reyna Monahan in [place] 12/23/16- Discharge Mr Benavides is seen this morning. He reports that he is feeling better in regards to slurred speech. He does continue to have intermittent low back with radiation down the left leg. We discussed probable need for further lumbar back workup. MRI of the brain was negative for acute infarct or bleeding. Carotid Doppler is negative for acute stenosis. ECHO read is pending. He was screened and evaluated by PT and OT who recommended discharge home with assistance. His significant other does assist him with ambulation and transfers as needed. [place] is scheduled to follow up with pain management in the next 2 weeks. Encouraged to follow-up with primary care provider, Dr. Reyna Monahan at [facility] in the next 1 week. Time spent with patient: 25 - 35 minutes Discharge Plan - Discharge Disposition Discharge Date: 12/23/16 Disposition: 01 Discharged Home, Self-Care *Condition: Stable Reason For Visit (Visit label in EMR): Left leg weakness - Discharge Medications *Discharge Medications: Continue Tizanidine HCl 4 mg PO Q8HR PRN #0 PRN Reason: PRN ORDERS Enalapril Maleate 5 mg PO DAILY #0 Multivitamin [One Daily] 1 tab PO HS #0 glipiZIDE [Glipizide] 10 mg PO BID #0 tab Aspirin [Aspir 81] 81 mg PO DAILY Atorvastatin Calcium 80 mg PO HS #0 Trazodone HCl 200 mg PO HS #0 tab Duloxetine HCl 30 mg PO TID Gabapentin 300 mg PO TID Depakote ER (divalproex ER) 250 mg tablet, 24 hr 500 mg PO DAILY tab lithium carbonate 150 mg capsule 150 mg PO HS cap Lyrica (pregabalin) 100 mg capsule 100 mg PO TID tadalafil 2.5 mg tablet 2.5 mg PO DAILY tab - Discharge Packet/Instructions *Diet: Carb consistant Diet *Activity: Activity as tolerated using cane *Pain Management/Treatment: Tylenol as needed for pain control *Wound Care: N/A Additional Instructions: Follow up with Dr Monahan to discuss further workup of low back and leg pain. Follow up with pain management as scheduled at the end of the month *Expected Signs/Symptoms: improvement in symptoms *Notify Physician if: Fever,chills, shortness of breath, chest pain, severe headache, change is vision, Uni-lateral weakness of other concerning symptoms. *During Business Hours Contact: Dr Reyna Monahan office *After Business Hours Contact: Page site promotion agent physician or present to the emergency room *Pending Lab/Results: No Pending Lab - Referrals/Follow Up *Referrals/Follow Up: Reyna Monahan MD [Family Provider] - 1 Week (Schedule follow-up appointment for [address] REYNA MONAHAN ON 12/30/2016 AT 10:00 AM--OFFICE NUMBER ) - Patient Handouts - Dismissal Complete Discharge Instructions are:: Complete <Arin So - Last Filed: 12/23/16 16:57> Discharge Information Primary care physician: - Discharge Diagnosis (1) Left leg weakness Status: Acute Hospital Course This is a general summary of the patient's hospital course. For more details refer to the complete medical record. Hospital course: I have independently evaluated and examined this patient. I reviewed the chart, the patient's history, and the GENERAL MACHINE OPERATOR/PA's documented findings as above. We discussed and formulated the assessment and plan as above with additions as below: Mr. Benavides reported improvement in strength in his left lower extremity such that he was able to walk today but describes pain radiating down the lateral left leg extending into the left foot involving the entire foot and all toes. Pain is a tingling shooting sensation and skin is hypersensitive to touch. His is at bedside and indicates that they are in process of following up with pain management due to concern about back problems causing sciatica. Speech was fluent on examination and there is hypersensitivity palpating the left foot. Ankle jerks are absent bilaterally, right knee jerk was +1 and left knee jerk is hyperreflexic and graded +3. Cholesterol unremarkable with total cholesterol 156, LDL 28; triglycerides however were moderately elevated at 460. Echocardiogram with borderline LVH, no evidence of intracardiac mass, thrombi, or vegetation, or shunt. No significant valvular dysfunction. Normal systolic and diastolic function with ejection fraction 75%. PA pressure 25 mm. Carotid Doppler with internal carotid artery stenosis of <0.8% bilaterally. Stable for discharge with recommendation that he follow up with PCP to discuss further imaging of his back.
--- NOTE | 2016-12-23 15:52 | Echocardiogram ---
DATE 12/22/2016 INDICATION Weakness, possible stroke; assess for cardiac source of embolus. TECHNICAL QUALITY: Technically fair 2D, M-mode and Doppler echocardiographic images were submitted for interpretation. FINDINGS 1. CARDIAC CHAMBERS. All cardiac chamber measurements are normal. Aortic root diameter is normal. RV size and contractility appear normal. 2. LV FUNCTION. Borderline concentric LVH is present. Wall motion analysis is normal. Systolic function is normal. EF of 75%. Diastolic function parameters are considered normal. 3. VALVES. Aortic, mitral and tricuspid valves structure and motion appear unremarkable with normal valve excursion, except for mitral annular calcification. 4. DOPPLER. Doppler shows normal flow velocities throughout. Trace tricuspid regurgitation. No evidence of pericardial effusion, intracardiac masses or demonstrable shunts. Patient is in normal sinus rhythm throughout the study. Systolic PA pressure is estimated at 25 mmHg. IMPRESSION 1. Normal cardiac chamber size. 2. Normal LV systolic and diastolic function. 3. No significant valvular dysfunction. 4. No evidence of intracardiac masses, thrombi, vegetations or shunts. 5. Patient is in sinus rhythm during the study. 6. Borderline concentric LVH. 7. Technically fair study. MTDD
== END 2016-12-23 12:50 | disposition home or self-care (01) ==
LOC: MED 11:44 → ED 11:44 → SUATTDRO 14:37 → MED 15:35
PROVIDERS: ADMIT Hospitalist; ATTEND Internal Medicine